=== PATIENT | male | born 1955 | race Caucasian/White ===

== ENCOUNTER 2017-02-28 12:48 | Emergency (ER) | payer MEDICARE ==
--- NOTE | 2017-02-28 13:17 | ER Document Report ---
ED Medical Screen (RME) - General Chief Complaint: Diarrhea Stated Complaint: DIARRHEA/BLOOD SUGAR PROBLEMS Time Seen by Provider: 02/28/17 12:59 Mode of Arrival: Ambulatory Information source: Patient Notes: 62-year-old diabetic male presents with complaints of low blood sugar as well as diarrhea. Patient notes he has had 5 episodes of diarrhea without any vomiting or fevers. Patient notes his blood sugar was 208 units of insulin I have greeted and performed a rapid initial assessment of this patient. A comprehensive ED assessment and evaluation of the patient, analysis of test results and completion of the medical decision making process will be conducted by additional ED providers. PHYSICAL EXAMINATION: GENERAL: Well-appearing, well-nourished and in no acute distress. HEAD: Atraumatic, normocephalic. EYES: Pupils equal round extraocular movements intact, conjunctiva are normal. ENT: Nares patent NECK: Normal range of motion LUNGS: No respiratory distress Musculoskeletal: Normal range of motion NEUROLOGICAL: Normal speech, normal gait. PSYCH: Normal mood, normal affect. SKIN: Warm, Dry, normal turgor, no rashes or lesions noted. TRAVEL OUTSIDE OF THE [place] IN LAST 30 DAYS: No - Related Data Allergies/Adverse Reactions: No Known Allergies Allergy (Verified 02/28/17 12:53) Past Medical History - Past Medical History Cardiac Medical History: Reports: Hx Hypercholesterolemia, Hx Hypertension Denies: Hx Atrial Fibrillation, Hx Congestive Heart Failure, Hx Coronary Artery Disease, Hx Heart Attack, Hx Peripheral Vascular Disease, Hx Pulmonary Embolism, Hx Heart Murmur Pulmonary Medical History: Reports: Hx Asthma - CHILD Denies: Hx Bronchitis, Hx COPD, Hx Pneumonia, Hx Respiratory Failure, Hx Sleep Apnea, Hx Tuberculosis Neurological Medical History: Denies: Hx Cerebrovascular Accident, Hx Seizures Endocrine Medical History: Denies: Hx Graves' Disease, Hx Hyperthyroidism, Hx Hypothyroidism Renal/ Medical History: Denies: Hx Benign Prostatic Hyperplasia, Hx End Stage Renal Disease, Hx Kidney Stones, Hx Peritoneal Dialysis Malignancy Medical History: Denies Hx Leukemia, Denies Hx Lung Cancer GI Medical History: Reports: Hx Gastroesophageal Reflux Disease. Denies: Hx Crohn's Disease, Hx Hepatitis, Hx Hiatal Hernia, Hx Irritable Bowel, Hx Liver Failure, Hx Ulcer Musculoskeltal Medical History: Denies Hx Arthritis, Denies Hx Fibromyalgia, Denies Hx Muscular Dystrophy Psychiatric Medical History: Denies: Hx Bipolar Disorder, Hx Depression, Hx Post Traumatic Stress Disorder , Hx Schizophrenia Traumatic Medical History: Denies: Hx Fractures Infectious Medical History: Denies: Hx Hepatitis, Hx HIV Past Surgical History: Reports: Hx Cholecystectomy. Denies: Hx Appendectomy, Hx Bowel Surgery, Hx Colostomy, Hx Coronary Artery Bypass Graft, Hx Gastric Bypass Surgery, Hx Herniorrhaphy, Hx Open Heart Surgery, Hx Pacemaker, Hx Tonsillectomy - Immunizations Hx Diphtheria, Pertussis, Tetanus Vaccination: Yes Physical Exam - Vital signs Vitals: Temp Pulse Resp BP Pulse Ox 97.8 F 90 18 169/78 H 97 02/28/17 12:52 02/28/17 12:52 02/28/17 12:52 02/28/17 12:52 02/28/17 12:52 Course - Vital Signs Vital signs: Temp Pulse Resp BP Pulse Ox 97.8 F 90 18 169/78 H 97 02/28/17 12:52 02/28/17 12:52 02/28/17 12:52 02/28/17 12:52 02/28/17 12:52
[2017-02-28 14:02] LABS: ABSOLUTE EOSINOPHILS # (AUTO) 0.1 10^3/uL (0.0-0.6); ABSOLUTE LYMPHOCYTES (AUTO) 0.9 10^3/uL (0.5-4.7); ABSOLUTE MONOCYTES (AUTO) 0.7 10^3/uL (0.1-1.4); ABSOLUTE NEUT (AUTO) 7.1 10^3/uL (1.7-8.2); BASOPHILS % (AUTO) 0.5 % (0-2); EOSINOPHILS % (AUTO) 1.2 % (0-6); HEMATOCRIT 40.3 % (37.9-51.0); HEMOGLOBIN 13.2 g/dL (13.5-17.0); HGB HCT DIFFERENCE -0.7; LYMPHOCYTES % (AUTO) 10.7 % (13-45); MEAN CORPUSCULAR HEMOGLOBIN 29.9 pg (27.0-33.4); MEAN CORPUSCULAR HGB CONC 32.9 g/dL (32.0-36.0); MEAN CORPUSCULAR VOLUME 91 fl (80-97); RED BLOOD COUNT 4.44 10^6/uL (4.35-5.55); RED CELL DISTRIBUTION WIDTH 13.9 % (11.5-14.0); SEGMENTED NEUTROPHILS % (AUTO) 79.6 % (42-78); WHITE BLOOD COUNT 8.9 10^3/uL (4.0-10.5)
[2017-02-28 14:07] LABS: APPEARANCE,URINE CLEAR; BILIRUBIN,URINE NEGATIVE (NEGATIVE); GLUCOSE, URINE >=500 mg/dL (NEGATIVE); KETONES,URINE NEGATIVE (NEGATIVE); LEUKOCYTE ESTERASE,URINE NEGATIVE (NEGATIVE); NITRITE,URINE NEGATIVE (NEGATIVE); PROTEIN,URINE 30 mg/dL (NEGATIVE); URINE SPECIFIC GRAVITY 1.023; UROBILINOGEN,URINE NEGATIVE mg/dL (<2.0)
[2017-02-28 14:20] LABS: ALANINE AMINOTRANSFERASE 30 U/L (21-72); ALBUMIN 4.1 g/dL (3.5-5.0); ALKALINE PHOSPHATASE 64 U/L (38-126); ANION GAP 11 (5-19); ASPARTATE AMINO TRANSFERASE 21 U/L (17-59); BILIRUBIN,DIRECT 0.5 mg/dL (0.0-0.4); BILIRUBIN,TOTAL 0.5 mg/dL (0.2-1.3); BLOOD UREA NITROGEN 15 mg/dL (7-20); CALCIUM 10.5 mg/dL (8.4-10.2); CARBON DIOXIDE 26 mmol/L (22-30); CHLORIDE 100 mmol/L (98-107); CREATININE RESULT 0.89 mg/dL (0.52-1.25); GLUCOSE 273 mg/dL (75-110); POTASSIUM 5.1 mmol/L (3.6-5.0); SODIUM 137.1 mmol/L (137-145); TOTAL PROTEIN 6.7 g/dL (6.3-8.2)
[2017-02-28] MEDS ORDERED: NORMAL SALINE 1000 ML 1,000 ML IV ONE (14:24)
[2017-02-28] MEDS ORDERED: INSULIN REG, HUMAN 100 UNIT/ML 3 ML VIAL (PYX) SUBCUT ONE (14:30)
--- NOTE | 2017-02-28 14:32 | ER Document Report ---
ED GI/ - General Chief Complaint: Diarrhea Stated Complaint: DIARRHEA/BLOOD SUGAR PROBLEMS Time Seen by Provider: 02/28/17 12:59 Mode of Arrival: Ambulatory Information source: Patient Notes: Patient is a 62-year-old male who presents to the ER today for elevated blood sugar readings today and 4 episodes of diarrhea that also began this morning. Patient states that he feels weak. TRAVEL OUTSIDE OF THE [place] IN LAST 30 DAYS: No - Related Data Allergies/Adverse Reactions: No Known Allergies Allergy (Verified 02/28/17 12:53) Past Medical History - General Information source: Patient - Social History Smoking Status: Current Every Day Smoker Chew tobacco use (# tins/day): No Frequency of alcohol use: Occasional Drug Abuse: None Family History: None Patient has suicidal ideation: No Patient has homicidal ideation: No - Past Medical History Cardiac Medical History: Reports: Hx Hypercholesterolemia, Hx Hypertension Denies: Hx Atrial Fibrillation, Hx Congestive Heart Failure, Hx Coronary Artery Disease, Hx Heart Attack, Hx Peripheral Vascular Disease, Hx Pulmonary Embolism, Hx Heart Murmur Pulmonary Medical History: Reports: Hx Asthma - CHILD Denies: Hx Bronchitis, Hx COPD, Hx Pneumonia, Hx Respiratory Failure, Hx Sleep Apnea, Hx Tuberculosis Neurological Medical History: Denies: Hx Cerebrovascular Accident, Hx Seizures Endocrine Medical History: Denies: Hx Graves' Disease, Hx Hyperthyroidism, Hx Hypothyroidism Renal/ Medical History: Denies: Hx Benign Prostatic Hyperplasia, Hx End Stage Renal Disease, Hx Kidney Stones, Hx Peritoneal Dialysis Malignancy Medical History: Denies Hx Leukemia, Denies Hx Lung Cancer GI Medical History: Reports: Hx Gastroesophageal Reflux Disease. Denies: Hx Crohn's Disease, Hx Hepatitis, Hx Hiatal Hernia, Hx Irritable Bowel, Hx Liver Failure, Hx Ulcer Musculoskeltal Medical History: Denies Hx Arthritis, Denies Hx Fibromyalgia, Denies Hx Muscular Dystrophy Psychiatric Medical History: Denies: Hx Bipolar Disorder, Hx Depression, Hx Post Traumatic Stress Disorder , Hx Schizophrenia Traumatic Medical History: Denies: Hx Fractures Infectious Medical History: Denies: Hx Hepatitis, Hx HIV Surgical Hx: Negative Past Surgical History: Reports: Hx Cholecystectomy. Denies: Hx Appendectomy, Hx Bowel Surgery, Hx Colostomy, Hx Coronary Artery Bypass Graft, Hx Gastric Bypass Surgery, Hx Herniorrhaphy, Hx Open Heart Surgery, Hx Pacemaker, Hx Tonsillectomy - Immunizations Hx Diphtheria, Pertussis, Tetanus Vaccination: Yes Hx Pneumococcal Vaccination: 06/19/12 Review of Systems - Review of Systems Constitutional: See HPI EENT: No symptoms reported Cardiovascular: No symptoms reported Respiratory: No symptoms reported Gastrointestinal: See HPI Genitourinary: No symptoms reported Male Genitourinary: No symptoms reported Musculoskeletal: No symptoms reported Skin: No symptoms reported Hematologic/Lymphatic: No symptoms reported Neurological/Psychological: No symptoms reported Physical Exam - Vital signs Vitals: Temp Pulse Resp BP Pulse Ox 97.8 F 90 18 169/78 H 97 02/28/17 12:52 02/28/17 12:52 02/28/17 12:52 02/28/17 12:52 02/28/17 12:52 - Notes Notes: PHYSICAL EXAMINATION: GENERAL: mildly ill appearing, but in no acute distress. HEAD: Atraumatic, normocephalic. EYES: Pupils equal round and reactive to light, extraocular movements intact, sclera anicteric, conjunctiva are normal. NECK: Normal range of motion, supple without lymphadenopathy LUNGS: CTAB and equal. No wheezes rales or rhonchi. HEART: Regular rate and rhythm without murmurs ABDOMEN: Soft, mild diffuse tenderness. No guarding, no rebound BACK: no vertebral tenderness, normal ROM GI/: no CVA tenderness EXTREMITIES: Normal range of motion, no pitting edema. No cyanosis. NEUROLOGICAL: Cranial nerves grossly intact. Normal sensory/motor exams. PSYCH: Normal mood, normal affect. SKIN: Warm, Dry, normal turgor, no rashes or lesions noted Course - Re-evaluation Re-evalutation: 02/28/17 18:19 serum glucose was 273 on arrival, insulin was administered and came down to 93. pt has tried multiple time to give us a stool sample but has been unable to provide one and has been here more than 5 hours. with otherwise normal labs, pt symptoms probably viral. will treat conservatively. - Vital Signs Vital signs: Temp Pulse Resp BP Pulse Ox 97.8 F 90 18 169/78 H 97 02/28/17 12:52 02/28/17 12:52 02/28/17 12:52 02/28/17 12:52 02/28/17 12:52 - Laboratory Result Diagrams: 02/28/17 13:30 02/28/17 13:30 Laboratory results interpreted by me: 0502/28/17 02/28/17 13:13 13:30 13:30 Hgb 13.2 L Seg Neutrophils % 79.6 H Lymphocytes % 10.7 L Potassium 5.1 H Glucose 273 H POC Glucose 228 H Calcium 10.5 H Direct Bilirubin 0.5 H Urine Protein Urine Glucose (UA) Urine Blood 02/28/17 02/28/17 13:30 15:35 Hgb Seg Neutrophils % Lymphocytes % Potassium Glucose POC Glucose 206 H Calcium Direct Bilirubin Urine Protein 30 H Urine Glucose (UA) >=500 H Urine Blood SMALL H Discharge - Discharge Clinical Impression: Elevated blood sugar Diarrhea Qualifiers: Diarrhea type: unspecified type Qualified Code(s): R19.7 - Diarrhea, unspecified Abdominal pain Qualifiers: Abdominal location: generalized Qualified Code(s): R10.84 - Generalized abdominal pain Condition: Stable Disposition: HOME, SELF-CARE Additional Instructions: drink plenty of gatorade and water. Return immediately for any new or worsening symptoms. Follow up with primary care provider, call tomorrow to make followup appointment. Referrals: DANA MUNGUIA MD [Primary Care Provider] - Follow up as needed
[2017-02-28 19:14] VITALS: BP 185/79
== END 2017-02-28 19:14 | disposition home or self-care (01) ==
LOC: ER 12:48
DX: R73.9 Hyperglycemia, unspecified (principal); R19.7 Diarrhea, unspecified; R10.84 Generalized abdominal pain
CPT/HCPCS: 99284; 96360; 36415; 82962; 85025; 80053; 81001; 74022; A9270; J7030; J1815

== ENCOUNTER 2017-11-13 20:49 | Observation (INO) | payer MEDICARE ==
[2017-11-13] MEDS ORDERED: ASPIRIN 81 MG TABLET, CHEWABLE PO ONE (20:53)
[2017-11-13 21:18] LABS: ABSOLUTE BASOPHILS # (AUTO) 0.1 10^3/uL (0.0-0.2); ABSOLUTE EOSINOPHILS # (AUTO) 0.5 10^3/uL (0.0-0.6); ABSOLUTE LYMPHOCYTES (AUTO) 1.8 10^3/uL (0.5-4.7); ABSOLUTE MONOCYTES (AUTO) 0.8 10^3/uL (0.1-1.4); ABSOLUTE NEUT (AUTO) 4.4 10^3/uL (1.7-8.2); EOSINOPHILS % (AUTO) 6.2 % (0-6); HEMATOCRIT 39.8 % (37.9-51.0); HEMOGLOBIN 13.4 g/dL (13.5-17.0); MEAN CORPUSCULAR HEMOGLOBIN 29.5 pg (27.0-33.4); MEAN CORPUSCULAR HGB CONC 33.7 g/dL (32.0-36.0); MEAN CORPUSCULAR VOLUME 87 fl (80-97); MONOCYTES % (AUTO) 10.4 % (3-13); PLATELET COUNT 182 10^3/uL (150-450); RED BLOOD COUNT 4.55 10^6/uL (4.35-5.55); RED CELL DISTRIBUTION WIDTH 13.8 % (11.5-14.0); SEGMENTED NEUTROPHILS % (AUTO) 58.4 % (42-78); TOTAL CELLS COUNTED % (AUTO) 100 %; WHITE BLOOD COUNT 7.5 10^3/uL (4.0-10.5)
[2017-11-13 21:26] LABS: INTERNATIONAL RATION (INR) 0.87; PROTHROMBIN TIME 12.4 SEC (11.4-15.4)
[2017-11-13 21:31] LABS: ALANINE AMINOTRANSFERASE 29 U/L (21-72); ALBUMIN 3.8 g/dL (3.5-5.0); ALKALINE PHOSPHATASE 67 U/L (38-126); ANION GAP 7 (5-19); ASPARTATE AMINO TRANSFERASE 18 U/L (17-59); BILIRUBIN,DIRECT 0.2 mg/dL (0.0-0.4); BILIRUBIN,TOTAL 0.3 mg/dL (0.2-1.3); BLOOD UREA NITROGEN 16 mg/dL (7-20); CALCIUM 10.6 mg/dL (8.4-10.2); CARBON DIOXIDE 29 mmol/L (22-30); CHLORIDE 99 mmol/L (98-107); GLUCOSE 248 mg/dL (75-110); POTASSIUM 4.6 mmol/L (3.6-5.0); SODIUM 134.5 mmol/L (137-145); TOTAL PROTEIN 5.8 g/dL (6.3-8.2)
--- NOTE | 2017-11-13 21:41 | RADIOLOGY REPORT (SQ) ---
EXAM DESCRIPTION: CHEST SINGLE VIEW COMPLETED DATE/TIME: 11/13/2017 9:29 pm REASON FOR STUDY: chest pain COMPARISON: 03/31/2016 EXAM PARAMETERS: NUMBER OF VIEWS: One view. TECHNIQUE: Single frontal radiographic view of the chest acquired. RADIATION DOSE: NA LIMITATIONS: None. FINDINGS: LUNGS AND PLEURA: No acute opacities, masses or pneumothorax. No pleural effusion. MEDIASTINUM AND HILAR STRUCTURES: Stable. HEART AND VASCULAR STRUCTURES: Heart normal in size. Normal vasculature. BONES: No acute findings. HARDWARE: None in the chest. OTHER: No other significant finding. IMPRESSION: NO ACUTE RADIOGRAPHIC FINDING IN THE CHEST. TECHNICAL DOCUMENTATION: JOB ID: [id number] [place]-72 2010 [employer]- All Rights Reserved
--- NOTE | 2017-11-13 23:24 | ER Document Report ---
ED General - General Chief Complaint: Chest Pain Stated Complaint: CHEST PAIN Time Seen by Provider: 11/13/17 21:00 Notes: Patient is a 62-year-old male with a past medical history of insulin-dependent diabetes, hypertension, hyperlipidemia, who presents with acute onset of left- sided chest pain radiating to the left upper extremity that started at approximately 6 PM this evening. Patient states that the pain was a crushing, pressure-like sensation over the left side of his chest. He states the pain did improve after receiving nitroglycerin by EMS. Nothing seemed to worsen the pain. He notes that there was no associated shortness of breath, nausea, vomiting or diaphoresis. He denies any history of similar pain in the past so he notes he has had intermittent chest discomforts over the last several weeks. However he states none have been to this degree of density. He spoke to his primary care doctor regarding the intermittent chest pains that he had had over the last several weeks and was instructed to come to the emergency department if he had any recurrence of similar pains. TRAVEL OUTSIDE OF THE [place] IN LAST 30 DAYS: No - Related Data Allergies/Adverse Reactions: No Known Allergies Allergy (Verified 02/28/17 12:53) Past Medical History - General Information source: Patient - Social History Smoking Status: Never Smoker Chew tobacco use (# tins/day): Yes Frequency of alcohol use: None Drug Abuse: None Lives with: Spouse/Significant other Family History: Reviewed & Not Pertinent Patient has suicidal ideation: No Patient has homicidal ideation: No - Past Medical History Cardiac Medical History: Reports: Hx Hypercholesterolemia, Hx Hypertension Denies: Hx Atrial Fibrillation, Hx Congestive Heart Failure, Hx Coronary Artery Disease, Hx Heart Attack, Hx Peripheral Vascular Disease, Hx Pulmonary Embolism, Hx Heart Murmur Pulmonary Medical History: Reports: Hx Asthma - CHILD Denies: Hx Bronchitis, Hx COPD, Hx Pneumonia, Hx Respiratory Failure, Hx Sleep Apnea, Hx Tuberculosis Neurological Medical History: Denies: Hx Cerebrovascular Accident, Hx Seizures Endocrine Medical History: Denies: Hx Graves' Disease, Hx Hyperthyroidism, Hx Hypothyroidism Renal/ Medical History: Denies: Hx Benign Prostatic Hyperplasia, Hx End Stage Renal Disease, Hx Kidney Stones, Hx Peritoneal Dialysis Malignancy Medical History: Denies Hx Leukemia, Denies Hx Lung Cancer GI Medical History: Reports: Hx Gastroesophageal Reflux Disease. Denies: Hx Crohn's Disease, Hx Hepatitis, Hx Hiatal Hernia, Hx Irritable Bowel, Hx Liver Failure, Hx Pancreatitis, Hx Ulcer Musculoskeltal Medical History: Denies Hx Arthritis, Denies Hx Fibromyalgia, Denies Hx Muscular Dystrophy Psychiatric Medical History: Denies: Hx Bipolar Disorder, Hx Depression, Hx Post Traumatic Stress Disorder , Hx Schizophrenia Traumatic Medical History: Denies: Hx Fractures Infectious Medical History: Denies: Hx Hepatitis, Hx HIV Past Surgical History: Reports: Hx Bowel Surgery - partial colon resection, Hx Cholecystectomy. Denies: Hx Appendectomy, Hx Colostomy, Hx Coronary Artery Bypass Graft, Hx Gastric Bypass Surgery, Hx Herniorrhaphy, Hx Open Heart Surgery , Hx Pacemaker, Hx Tonsillectomy - Immunizations Hx Diphtheria, Pertussis, Tetanus Vaccination: Yes Hx Pneumococcal Vaccination: 06/19/12 Review of Systems - Review of Systems Notes: Constitutional: Negative for fever. HENT: Negative for sore throat. Eyes: Negative for visual changes. Cardiovascular: Positive for chest pain. Respiratory: Negative for shortness of breath. Gastrointestinal: Negative for abdominal pain, vomiting or diarrhea. Genitourinary: Negative for dysuria. Musculoskeletal: Negative for back pain. Skin: Negative for rash. Neurological: Negative for headaches, weakness or numbness. 10 point ROS negative except as marked above and in HPI. Physical Exam - Vital signs Vitals: Temp Resp BP Pulse Ox 97.4 F 18 149/77 H 99 11/13/17 20:56 11/13/17 20:56 11/13/17 20:56 11/13/17 20:56 Interpretation: Normal Notes: PHYSICAL EXAMINATION: GENERAL: Well-appearing, well-nourished and in no acute distress. HEAD: Atraumatic, normocephalic. EYES: Pupils equal round and reactive to light, extraocular movements intact, sclera anicteric, conjunctiva are normal. ENT: nares patent, oropharynx clear without exudates. Moist mucous membranes. NECK: Normal range of motion, supple without lymphadenopathy LUNGS: Breath sounds clear to auscultation bilaterally and equal. No wheezes rales or rhonchi. HEART: Regular rate and rhythm without murmurs ABDOMEN: Soft, nontender, normoactive bowel sounds. No guarding, no rebound. No masses appreciated. EXTREMITIES: Normal range of motion, no pitting or edema. No cyanosis. NEUROLOGICAL: No focal neurological deficits. Moves all extremities spontaneously and on command. PSYCH: Normal mood, normal affect. SKIN: Warm, Dry, normal turgor, no rashes or lesions noted. Course - Re-evaluation Re-evalutation: 11/13/17 23:23 Presentation of chest pain in an otherwise well appearing patient. Low to moderate clinical suspicion for ACS given clinical history, exam, EKG without ST elevations or depressions, and negative initial troponin. PE also seems unlikely given clinical history, absence of tachycardia or dyspnea. Patient is PERC criteria negative. CXR without evidence of pneumothorax or pneumonia. No widened mediastinum. Aortic dissection also seems unlikely given history, symmetric pulses, CXR, and vitals. We will repeat a delta troponin and given patient's somewhat concerning history we will discuss with hospitalist for inpatient stress testing as patient has not had any kind of provocative test in over 10 years. HEART Score: History:1 EC Age:1 Risk Factors:2 Troponin:0 Total: 4 11/14/17 01:10 Repeat troponin remains normal the patient continues to require Nitropaste remained chest pain-free. I discussed with Dr. Ayala who is accepted the patient for hospitalization and treadmill stress test. - Vital Signs Vital signs: Temp Pulse Resp BP Pulse Ox 97.4 F 14 118/65 98 11/13/17 20:56 11/14/17 01:01 11/14/17 01:01 11/14/17 01:01 - Laboratory Result Diagrams: 11/13/17 21:05 11/13/17 21:05 Laboratory results interpreted by me: 11/13/17 11/13/17 21:05 21:05 Hgb 13.4 L Eosinophils % 6.2 H Sodium 134.5 L Glucose 248 H Calcium 10.6 H Total Protein 5.8 L - Diagnostic Test Radiology reviewed: Image reviewed, Reports reviewed Radiology results interpreted by me: 11/14/17 01:10 Chest x-ray: No acute infiltrate or pneumothorax - EKG Interpretation by Me Additional EKG results interpreted by me: 11/14/17 01:11 Normal sinus rhythm. Rate 86. No ST elevations or depressions. QTC is 440. 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
[2017-11-14] MEDS ORDERED: GLUCAGON,HUMAN RECOMB 1 MG INJ IM PRN (03:46)
[2017-11-14] MEDS ORDERED: NITROGLYCERIN 0.4 MG/TAB 25 TAB/BOTTLE SL PRN (03:46)
[2017-11-14] MEDS ORDERED: DEXTROSE 50%-WATER 25 GM/50 ML DISP.SYRIN IV PRN ×2 (03:46)
[2017-11-14] MEDS ORDERED: PROMETHAZINE HCL INJ 25 MG/1 ML VIAL IV PRN (03:46)
[2017-11-14] MEDS ORDERED: DEXTROSE 40% GEL 15 GM TUBE PO PRN ×2 (03:46)
[2017-11-14] MEDS ORDERED: ENOXAPARIN SODIUM INJ 100 MG/1 ML DISP.SYRIN SUBCUT ONE (04:00)
[2017-11-14 07:40] LABS: CHOLESTEROL 149.68 mg/dL (0-200); TRIGLYCERIDES 72 mg/dL (<150)
[2017-11-14 07:51] LABS: DIRECT LDL 74 mg/dL (<100)
[2017-11-14] MEDS: INSULIN REG, HUMAN 100 UNIT/ML 3 ML VIAL (PYX) SUBCUT PRN ×2 (08:53→21:54)
[2017-11-14] MEDS: DOCUSATE SODIUM 100 MG CAPSULE PO SCH (08:56)
[2017-11-14] MEDS: ASPIRIN 81 MG TABLET, ENT COATED PO SCH (08:56)
[2017-11-14] MEDS ORDERED: FAMOTIDINE 20 MG TABLET PO SCH (10:00)
[2017-11-14] MEDS ORDERED: OXYCODONE-ACETAMINOPHEN 5-325 MG TABLET PO PRN (10:12)
[2017-11-14] MEDS ORDERED: (PENDING PHARMACY ID) (Lisinopril [Lisinopril] 40 MG) PO SCH (10:15)
[2017-11-14] MEDS ORDERED: (PENDING PHARMACY ID) (Metformin Hcl [Metformin Hcl] 1,000 MG) PO SCH (10:15)
--- NOTE | 2017-11-14 11:07 | PDOC CONSULTATION ---
Consultation Consult Date: 11/14/17 Attending physician:: JONATHAN ANDREWS Consult reason:: Chest pain History of Present Illness Admission Date/PCP: 11/14/17 01:21 JAKUB MUNGUIA NP Patient complains of: Chest pain History of Present Illness: Patient is a 62-year-old male with a past medical history of insulin-dependent diabetes, hypertension, hyperlipidemia, who presents with acute onset of left- sided chest pain radiating to the left upper extremity that started at approximately 6 PM this evening. Patient states that the pain was a crushing, pressure-like sensation over the left side of his chest. He states the pain did improve after receiving nitroglycerin by EMS. Nothing seemed to worsen the pain. He notes that there was no associated shortness of breath, nausea, vomiting or diaphoresis. He denies any history of similar pain in the past so he notes he has had intermittent chest discomforts over the last several weeks. However he states none have been to this degree of density. He spoke to his primary care doctor regarding the intermittent chest pains that he had had over the last several weeks and was instructed to come to the emergency department if he had any recurrence of similar pains. Subsequently his cardiac enzymes have come back negative. EKGs did not show any acute changes. However because of significant cardiac risk factors feel an ischemia evaluation is indicated. Patient is being scheduled for a nuclear stress test. Past Medical History Cardiac Medical History: Reports: Hyperlipidema, Hypertension Denies: Atrial Fibrillation, Congestive Heart Failure, Coronary Artery Disease, Myocardial Infarction, Peripheral Vascular Disease, Pulmonary Embolism , Heart Murmur Pulmonary Medical History: Reports: Asthma - CHILD Denies: Bronchitis, Chronic Obstructive Pulmonary Disease (COPD), Pneumonia, Respiratory Failure, Sleep Apnea, Tuberculosis Neurological Medical History: Denies: Seizures Endocrine Medical History: Denies: Hyperthyroidism, Hypothyroidism Renal/ Medical History: Denies: End Stage Renal Disease Malignancy Medical History: Denies: Breast Cancer, Cervical Cancer, Leukemia, Lung Cancer, Ovarian Cancer GI Medical History: Reports: Gastroesophageal Reflux Disease Denies: Crohn's Disease, Hepatitis, Hiatal Hernia Musculoskeltal Medical History: Denies: Arthritis, Fibromyalgia Psychiatric Medical History: Denies: Bipolar Disorder, Depression, Post Traumatic Stress Disorder Hematology: Denies: Anemia, Hemophilia, Sickle Cell Disease Infectious Medical History: Denies: HIV Past Surgical History Past Surgical History: Reports: Cholecystectomy Denies: Appendectomy, Colostomy, Coronary Artery Bypass Graft, Gastric Bypass Surgery, Herniorrhaphy, Pacemaker, Tonsillectomy Social History Information Source: Patient Lives with: Spouse/Significant other Smoking Status: Never Smoker Hx Recreational Drug Use: No Drugs: None Hx Prescription Drug Abuse: No - Advance Directive Resuscitation Status: Full Code Surrogate healthcare decision maker:: Patient's live-in girlfriend is a surrogate decision-maker with the name of Giovanna Family History Family History: Hypertension Parental Family History Reviewed: Yes Children Family History Reviewed: Yes Sibling(s) Family History Reviewed.: Yes Medication/Allergy Home Medications: Gabapentin [Gabapentin] 600 mg PO TID 11/14/17 Hydrochlorothiazide 12.5 mg PO DAILY 11/14/17 Insulin Glargine,Hum.rec.anlog [Lantus Insulin 100 Unit/1 ml 10 ml] 50 units SUBCUT QAM 11/14/17 Lisinopril [Lisinopril] 40 mg PO DAILY 11/14/17 Meloxicam [Meloxicam] 15 mg PO DAILY 11/14/17 Metformin HCl [Metformin HCl] 1,000 mg PO BID 11/14/17 Methocarbamol 500 mg PO TID 11/14/17 Oxycodone HCl/Acetaminophen [Oxycodone-Acetaminophen 5-325] 1 tab PO Q6 PRN MDD 4 11/14/17 Pantoprazole Sodium 40 mg PO DAILY 11/14/17 Sitagliptin Phosphate [Januvia] 100 mg PO DAILY 11/14/17 Tramadol HCl [Tramadol HCl] 50 mg PO BID 11/14/17 Allergies/Adverse Reactions: No Known Allergies Allergy (Verified 02/28/17 12:53) Review of Systems Review of Systems: Please see history of present illness and past medical history as wall. Constitutional: No fever or chills reported. Head : No recent chronic headaches, recent head injury. Eyes: No recent eye pain, diplopia, redness, discharge, acute visual changes. Ears: No recent chronic ear pain, acute hearing loss, ear discharge. Oral cavity: No recent ulcerations, bleeding, oral cavity discomfort. Neck: No recent acute neck pain reported. Hematologic: No recent easy bruising or bleeding or hematologic malignancy reported. Lymphatic: No recent lymphatic malignancy, chronic lymphadenopathy reported yet Cardiovascular system review: See history of present illness. Respiratory system review: No recent chronic cough, hemoptysis, blood clots in the lungs reported. Mild Shortness of breath on exertion Gastrointestinal system review: Negative for any recent acute or chronic abdominal pain, hematemesis, melena, recent change in bowel habits. Genitourinary system review: No recent acute or chronic hematuria, flank pain, UTI etc. reported. Skin system review: Negative for any recent abnormal bruising, no rash, no pruritus reported. Neurologic: No prior history of strokes, mini strokes, seizure disorder. Psychologic: No history of major psychosis or major depression reported. Musculoskeletal: Minor aches and pains reported. No acute joint swelling reported. Endocrine: No recent polyuria, polydipsia, recent heat or cold intolerance. Physical Exam Vital Signs: Temp Pulse Resp BP Pulse Ox 97.9 F 77 16 147/71 H 97 11/14/17 07:59 11/14/17 07:59 11/14/17 07:59 11/14/17 07:59 11/14/17 07:59 Intake & Output 11/13/17 11/14/17 11/15/17 06:59 06:59 06:59 Intake Total 5 Balance 5 Weight 85.1 kg Exam: GENERAL: well-nourished and in no acute distress. Alert and oriented x3 HEAD: Atraumatic, normocephalic. EYES: Pupils equal round and reactive to light, extraocular movements intact, sclera anicteric, conjunctiva are normal. ENT: TMs normal, nares patent, oropharynx clear without exudates. Moist mucous membranes. No oral ulcerations or bleeding gums noted NECK: supple without lymphadenopathy. Trachea is central. No cervical or axillary lymphadenopathy noted. Carotids are 2+, JVD WNL LUNGS: Respiration seems nonlabored, no significant accessory muscle action noted. Breath sounds clear to auscultation bilaterally and equal noted. No wheezes rales or rhonchi noted. No significant dullness noted on percussion. CHEST: Palpation of the chest wall shows no significant chest wall tenderness. No other significant abnormalities noted. 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 ABDOMEN: Soft, no significant tenderness appreciated, normoactive bowel sounds. No guarding, no rebound. No rigidity noted . No masses appreciated. EXTREMITIES: Pedal pulses are 1-2+, no calf tenderness noted. No clubbing or cyanosis. Negative pedal edema noted NEUROLOGICAL: Focused neurological exam showed no significant neurologic deficit. Normal speech, no focal weakness appreciated. PSYCH: Normal mood, normal affect. Judgment and insight within normal limits. SKIN: No significant ecchymosis, rash, ulcerations or signs of pruritus noted. MUSCULOSKELETAL EXAM: No significant joint swelling noted. Results Laboratory Results: 11/14/17 06:31 Triglycerides 72 Cholesterol 149.68 LDL Cholesterol Direct 74 VLDL Cholesterol 14.0 HDL Cholesterol 70 11/14/17 06:31 Troponin I < 0.012 EKG Comments: Showed sinus rhythm, no acute ST-T wave changes noted Impressions: Chest X-Ray 11/13/17 20:53 IMPRESSION: NO ACUTE RADIOGRAPHIC FINDING IN THE CHEST. 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 Cardiac enzymes so far has been negative. Electrocardiogram did not show any definitive ST segment changes. Multiple differential diagnoses exist in this patient. In descending order of probability this includes underlying coronary artery disease, gastroesophageal reflux, musculoskeletal pain, referred pain from elsewhere, anxiety panic disorder etc.Patient has significant cardiac risk factors, which indicates that there is a intermediate probability of chest discomfort coming from underlying CAD. Feel that it would need to be evaluated further. Discussed evaluation to assess this. In this regard risk benefits of nuclear stress test and other alternative processes were discussed in detail. The patient prefers to undergo nuclear stress test. The small risk of radiation , myocardial infarction, , cardiac arrhythmias, respiratory distress etc. were discussed. Patient understood the risks and gave informed consent. Nuclear stress test was therefore scheduled. For risk evaluation, patient is also being scheduled for a 2-D echocardiogram. Patient questions were answered. Diabetes: Recommend good control of blood sugar. However should avoid any hypoglycemia or hyperglycemia. Patient being expertly managed by primary care M.D/hospitalist. Hypertension: Reasonably well controlled. Blood pressure goal in this patient is 135/85 or less. This was discussed with the patient. Currently blood pressure under reasonable control. Better medication for this patient are MELO inhibitor/ARB/beta anny etc. discussed side effects of uncontrolled hypertension and also severe hypotension. Hyperlipidemia: LDL goal is less than 70. Recommend statin therapy at least intermediate or high dose, of high potency status. Periodic lipid panel and liver panel is indicated. Patient to report any significant muscle discomfort or other side effects. - Time Time Spent: 30 to 50 Minutes - CODE STATUS was discussed, patient remains full code. Surrogate decision-maker unchanged. Multiple medical problems were addressed. More than 50% of the time spent coordinating care, discussing management plans with involved caregivers. Management plans discussed with involved personnels. Medical decision making was of moderate to high complexity , patient's has multiple comorbidities. Medications reviewed and adjusted accordingly: Yes
[2017-11-14] MEDS ORDERED: LANSOPRAZOLE 30 MG TAB.RAP.DR PO ONE (11:30)
[2017-11-14] MEDS ORDERED: LISINOPRIL 10 MG TABLET PO ONE (11:30)
[2017-11-14] MEDS ORDERED: SITAGLIPTIN PHOSPHATE 50 MG TABLET PO ONE (11:45)
[2017-11-14] MEDS ORDERED: METFORMIN HCL 500 MG TABLET PO ONE (12:00)
[2017-11-14] MEDS: GABAPENTIN 300 MG CAPSULE PO SCH ×2 (15:18→21:32)
[2017-11-14] MEDS: METHOCARBAMOL 500 MG TABLET PO SCH ×2 (15:19→21:32)
[2017-11-14] MEDS ORDERED: MAG HYDROX/AL HYDROX/SIMETH SUSP 30 ML UDCUP PO ONE (16:00)
[2017-11-14] MEDS ORDERED: METOCLOPRAMIDE HCL ORAL SOLN 10 MG/10 ML UDCUP PO ONE (16:00)
[2017-11-14] MEDS ORDERED: LIDOCAINE 2% VISCOUS SOLN 20 ML UDCUP PO ONE (16:00)
[2017-11-14] MEDS ORDERED: AMINOPHYLLINE INJ/PF 250 MG/10 ML SDV IV ONE (16:01)
[2017-11-14] MEDS ORDERED: REGADENOSON INJ 0.4 MG/5 ML DISP.SYRIN IV ONE (16:01)
--- NOTE | 2017-11-14 17:39 | HISTORY AND PHYSICAL E ---
History and Physical NAME: UMER PATRICK : 1955 AGE: 62Y ADMITTED: 11/14/2017 ROOM: 318 PRIMARY CARE PROVIDER: Dena Salazar APRN CHIEF COMPLAINT: Chest pain. HISTORY OF PRESENT ILLNESS: The patient is a 62-year-old male with a past medical history of diabetes mellitus type 2 and hypertension. The patient presented to the emergency department with a chief complaint of left-sided chest pain which radiated into the left upper extremity. The patient's pain started approximately 3 hours prior to presentation. The patient stated that the pain was crushing, pressure like sensation under the left side of his chest. The patient stated that his pain did improve after receiving nitroglycerin by EMS. Nothing seemed to worsen the pain or make the pain better. The patient had no other associated symptoms of nausea, dyspnea, diaphoresis, or vomiting. The patient denies any history of similar pain. The patient denies any frequent heartburn. He also states that this has been intermittent over the past week but duller in nature. However, the patient was evaluated by his primary care provider regarding this and was instructed to come to the emergency department for evaluation. Upon presentation to the emergency department the patient was found to be normotensive with an unremarkable set of cardiac enzymes. EKG revealed a sinus rhythm and the patient was referred to the hospitalist for admission and management. PAST MEDICAL HISTORY: 1. Hyperlipidemia. 2. Hypertension. 3. Childhood asthma. 4. Diabetes mellitus type 2. 5. Peripheral neuropathy. PAST SURGICAL HISTORY: 1. Partial colon resection. 2. Cholecystectomy. 3. Rotator cuff surgery. 4. Right wrist surgery. 5. Neck surgery. ALLERGIES: No known drug allergies. HOME MEDICATIONS: 1. Gabapentin 600 mg p.o. t.i.d. 2. Hydrochlorothiazide 12.5 mg p.o. daily. 3. Lisinopril 40 mg p.o. daily. 4. Meloxicam 15 mg p.o. daily. 5. Metformin 1000 mg p.o. b.i.d. 6. Methocarbamol 500 mg p.o. t.i.d. 7. Protonix 40 mg p.o. daily. 8. Januvia 100 mg p.o. daily. 9. Tramadol 50 mg p.o. b.i.d. SOCIAL HISTORY: The patient currently resides at home. The patient appoints as his surrogate decision maker, Kera Fernández, who may be reached at [phone]. The patient denies any history of tobacco use. No history of alcohol or illicit drug use. FAMILY MEDICAL HISTORY: Positive for hypertension in multiple family members. No other family history to report. REVIEW OF SYSTEMS: CONSTITUTIONAL: The patient denies any fevers, chills, dizziness, weakness, or loss of consciousness. INTEGUMENTARY: The patient denies any diaphoresis, rashes, bruising, itching. HEENT: Denies any vision change, hearing loss, nasal drainage, sore throat. No headaches. CARDIOVASCULAR: Denies any shortness of breath, edema, heart palpitations. Admits to chest pain. RESPIRATORY: Denies any cough, sputum production, or hemoptysis. GASTROINTESTINAL: Denies any nausea, vomiting, diarrhea, abdominal pain, bloating, hematemesis, constipation, melena, or hematochezia. GENITOURINARY: Denies any hematuria, polyuria, or dysuria. MUSCULOSKELETAL: Denies any acute on chronic joint pains. NEUROLOGIC: Denies any seizures, tremors, or loss of consciousness. HEMATOLOGIC: Denies any radha bleeding, easy bruising. ENDOCRINE: Denies any recent weight changes or abnormal glucoses. PSYCHIATRIC: Denies suicidal or homicidal ideation. The rest of the review of the other organ systems is negative. PHYSICAL EXAMINATION: GENERAL: On examination the patient is a well-developed, well-nourished 62-year-old male who is awake, alert, and oriented to person, place, time, and situation. He is verbal, conversational, ambulatory, does not appear to be in any acute distress. VITAL SIGNS: Temperature 98.5, pulse 83, respirations 16, blood pressure 131/83, oxygen saturation is 96% on room air. SKIN: Warm and dry; no rash, he is not diaphoretic. HEENT: Pupils equal, round reactive to light and accommodation. Conjunctivae are pink. There is no evidence of JVP. CARDIOVASCULAR: Heart is regular. There is no murmur or rub. CHEST: Clear, symmetrical, unlabored. ABDOMEN: Soft, nontender, nondistended. Bowel sounds are present. No palpable organomegaly. BACK: No CVA tenderness or sacral edema. EXTREMITIES: No clubbing, cyanosis, edema. PSYCHIATRIC: Appropriate affect, pleasant mood. DIAGNOSTIC STUDIES: Lab values are as follows: Hematology obtained on 11/13/2017; WBC 7.5, hemoglobin 13.4, hematocrit is 39.9, platelet count is 182,000. Chemistry obtained on 11/14/2017; sodium is 134, potassium 4.6, chloride is 99, carbon dioxide is 29, BUN 16, creatinine 0.87, glucose 248, calcium is 10.6, bilirubin is 0.3, AST 18, ALT 29, alk-phos 67, total protein 5.8, albumin 3.8. Triglycerides are 72, cholesterol 149, LDL 74, VLDL is 14, HDL is 70. IMPRESSION AND PLAN: 1. Chest pain. Will observe the patient and continue with telemetry unit. We will obtain serial cardiac enzymes. The patient's lipid panel was unremarkable, continue statin, aspirin therapy. The patient will be seen and evaluated by Dr. Quezada and follow. 2. Hypertension. Will continue the patient's home medications. 3. Diabetes mellitus type 2. Will continue the patient's home meds as well as sliding scale coverage. CODE STATUS: The patient is a full code. DISPOSITION: Depending on the patient's symptomatology and diagnostic findings will reevaluate in the a.m. TIME SPENT: On this admission, including assessment, plan, physical examination, patient education, review of records, and speciality collaboration is 45 minutes. DICTATING PHYSICIAN: MARTHA LOPEZ NP [id number] PHY#: [id number] ID: [id number] JOB#: [id number] ACCT: [id number] cc:MARTHA LOPEZ NP >
[2017-11-14] MEDS: METFORMIN HCL 500 MG TABLET PO SCH (18:04)
[2017-11-14] MEDS: ENOXAPARIN SODIUM INJ 100 MG/1 ML DISP.SYRIN SUBCUT SCH (18:05)
[2017-11-14] MEDS ORDERED: SIMVASTATIN 40 MG TABLET PO SCH (22:00)
[2017-11-15] MEDS: ENOXAPARIN SODIUM INJ 100 MG/1 ML DISP.SYRIN SUBCUT SCH (05:31)
[2017-11-15] MEDS ORDERED: LISINOPRIL 10 MG TABLET PO SCH (10:00)
[2017-11-15] MEDS ORDERED: SITAGLIPTIN PHOSPHATE 50 MG TABLET PO SCH (10:00)
[2017-11-15] MEDS ORDERED: LANSOPRAZOLE 30 MG TAB.RAP.DR PO SCH (10:00)
[2017-11-15] MEDS: GABAPENTIN 300 MG CAPSULE PO SCH (10:31)
[2017-11-15] MEDS: METHOCARBAMOL 500 MG TABLET PO SCH (10:31)
[2017-11-15] MEDS: ASPIRIN 81 MG TABLET, ENT COATED PO SCH (10:32)
[2017-11-15] MEDS: METFORMIN HCL 500 MG TABLET PO SCH (10:32)
[2017-11-15] MEDS: DOCUSATE SODIUM 100 MG CAPSULE PO SCH (10:32)
--- NOTE | 2017-11-15 11:04 | DRAGON STRESS TEST REPORT ---
INTRAVENOUS LEXISCAN CARDIOLITE STRESS TEST USING SINGLE PHOTON EMMISION COMPUTERIZED TOMOGRAPHIC. DATE OF PROCEDURE: November 15, 2017, INDICATION : Chest pain CARDIAC RISK FACTORS: Diabetes, hypertension, dyslipidemia, family history of CAD RESTING EKG: Sinus rhythm without any baseline ST-T wave changes STRESS EKG: No significant changes noted with LexiScan bolus REASON FOR TERMINATION: Protocol. PROCEDURE REPORT: Baseline heart rate 83 beats per minute with blood pressure of 151/76. Patient had no significant complaints. Heart rate at 2 minutes post bolus 88 with a blood pressure of 155/63. 3 minutes post bolus heart rate 94 with blood pressure of 159/64. No significant EKG changes were noted. Patient had no significant complaints during the procedure or postprocedure. Patient injected with Aminophyllin 75 mg at 3 minutes or later after Lexiscan bolus. CONCLUSIONS: Normal EKG and hemodynamic response to IV LexiScan. NUCLEAR DATA: At rest the patient was given 11.71 millicuries of technetium 99 sestamibi injected intravenously. As per protocol rest gated SPECT images were obtained. On day of stress test, the patient was given intravenous LexiScan at a dose of 0.4 mg in 5 mL intravenously, followed by flush with normal saline. Subsequently the stress dose of 37.7 millicuries of technetium 99 sestamibi was injected intravenously. As per protocol stress gated images were obtained. NUCLEAR INTERPRETATION: Both raw and processed data were used for interpretation. Visual, qualitative, computer-generated quantitative data was used. There was good myocardial uptake of technetium compound. Motion artifact and soft tissue attenuations were noted. Increased visceral uptake was noted. No definitive areas of transient perfusion defect noted, No definitive areas of fixed perfusion defect or scars noted. EKG gated imaging showed LV EF at 53 %, rest and stress gated EF similar visually. T. I D. ratio was 0.89. Lung heart ratio noted to be within normal limits 0.22. No significant extracardiac and abnormal radiotracer activities were noted. RV free wall uptake was noted to be WNL. IMPRESSION: Also refer to comments under nuclear interpretation. Also test results needs to be interpreted in the context of pretest probability. 1. No definitive areas of transient perfusion defect noted. 2. There is no definitive scintigraphic evidence of myocardial infarction/scar. 3. EKG gated imaging shows left ventricular ejection fraction of approx. 53 %. 4. Clinical correlation requested as occasionally single vessel disease or balanced ischemia could be missed. In approximately 10% of the cases Lexiscan may not cause adequate vasodilatory stress. RECOMMENDATIONS: Aggressive risk factor modification and medical management. Further evaluation may be needed if continued symptoms or other high risk indicators are noted on clinical evaluation. Close cardiology follow-up is also recommended. Clinical correlation with echocardiogram derived ejection fraction. Inability to exercise by itself can lead to increased cardiovascular event risks. Consider cardiology consultation and or follow-up if clinically indicated. 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 WILLIAM
--- NOTE | 2017-11-15 11:54 | EKG REPORT ---
SEVERITY:- ABNORMAL ECG - SINUS OR ECTOPIC ATRIAL RHYTHM FIRST DEGREE AV BLOCK : Confirmed by: Cathi Bauer MD 15-Nov-2017 11:53:17
--- NOTE | 2017-11-15 11:54 | EKG REPORT ---
SEVERITY:- NORMAL ECG - SINUS RHYTHM : Confirmed by: Cathi Bauer MD 15-Nov-2017 11:53:20
--- NOTE | 2017-11-15 11:54 | EKG REPORT ---
SEVERITY:- ABNORMAL ECG - SINUS OR ECTOPIC ATRIAL RHYTHM FIRST DEGREE AV BLOCK : Confirmed by: Cathi Bauer MD 15-Nov-2017 11:53:12
--- NOTE | 2017-11-15 11:56 | PDOC PROGRESS REPORT ---
Subjective Progress Note for:: 11/15/17 Subjective:: Patient seems to be doing better. Pt is denying any chest arm or neck discomfort. Patient denying any PND, orthopnea. Patient denied any sustained palpitations, dizziness, syncope, near syncope. Patient denying any fever chills. Patient denying any other significant discomfort. Patient is maintaining sinus rhythm. Review of systems: Rest review of systems negative. Medications: Medications have been reviewed. Reason For Visit: CHEST PAIN Physical Exam Vital Signs: Temp Pulse Resp BP Pulse Ox 98.2 F 76 17 131/56 H 97 11/15/17 03:07 11/15/17 03:07 11/15/17 03:07 11/15/17 03:07 11/15/17 03:07 Intake & Output 11/14/17 11/15/17 11/16/17 06:59 06:59 06:59 Intake Total 5 1748 Balance 5 1748 Weight 85.1 kg 84.7 kg Exam: GENERAL: well-nourished and in no acute distress. Alert and oriented x3 HEAD: Atraumatic, normocephalic. EYES: Pupils equal round and reactive to light, extraocular movements intact, sclera anicteric, conjunctiva are normal. ENT: TMs normal, nares patent, oropharynx clear without exudates. Moist mucous membranes. No oral ulcerations or bleeding gums noted NECK: supple without lymphadenopathy. Trachea is central. No cervical or axillary lymphadenopathy noted. Carotids are 2+, JVD WNL LUNGS: Respiration seems nonlabored, no significant accessory muscle action noted. Breath sounds clear to auscultation bilaterally and equal noted. No wheezes rales or rhonchi noted. No significant dullness noted on percussion. CHEST: Palpation of the chest wall shows no significant chest wall tenderness. No other significant abnormalities noted. 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 ABDOMEN: Soft, no significant tenderness appreciated, normoactive bowel sounds. No guarding, no rebound. No rigidity noted . No masses appreciated. EXTREMITIES: Pedal pulses are 1-2+, no calf tenderness noted. No clubbing or cyanosis. Negative pedal edema noted NEUROLOGICAL: Focused neurological exam showed no significant neurologic deficit. Normal speech, no focal weakness appreciated. PSYCH: Normal mood, normal affect. Judgment and insight within normal limits. SKIN: No significant ecchymosis, rash, ulcerations or signs of pruritus noted. MUSCULOSKELETAL EXAM: No significant joint swelling noted. Results Laboratory Results: 11/14/17 11/14/17 11/14/17 06:31 11:48 18:15 Troponin I < 0.012 < 0.012 < 0.012 EKG Comments: Sinus rhythm, no acute ST-T wave changes noted Impressions: Chest X-Ray 11/13/17 20:53 IMPRESSION: NO ACUTE RADIOGRAPHIC FINDING IN THE CHEST. 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 This was evaluated with a nuclear stress test. Nuclear stress test was negative for any significant areas of ischemia or any significant areas of scar. The nuclear stress test is felt to be relatively low risk. Patient informed that occasionally single- vessel disease and balanced ischemia could be missed. Patient advised aggressive risk factor modification and medical therapy. Patient informed that further evaluation may become necessary if symptoms worsens or there is a development of new symptoms indicative of angina or angina equivalent symptom. Diabetes: Recommend good control of blood sugar. However should avoid any hypoglycemia and hyperglycemia. Patient being expertly managed by primary care M.D/hospitalist Hypertension: Reasonably well controlled. Blood pressure goal in this patient is 135/85 or less. This was discussed with the patient. Currently blood pressure under reasonable control. Better medication for this patient are MELO inhibitor/ARB/beta anny etc. discussed side effects of uncontrolled hypertension and also severe hypotension. Hyperlipidemia: LDL goal is less than 70. Recommend statin therapy at least intermediate or high dose, of high potency status. Periodic lipid panel and liver panel is indicated. Patient to report any significant muscle discomfort or other side effects.. - Time Time with patient: Greater than 35 minutes - Patient was seen multiple times. Total time exceeds 40 minutes. In the morning nuclear stress test procedure, risks benefits, alternatives were discussed. Patient seen during the stress test. Patient also seen after stress test when results were discussed with the patient in detail. Patient's questions were answered. Nuclear stress test results were discussed with the patient. Patient was informed that no definitive evidence of pharmacologic stress-induced ischemia noted. No definite fixed defects were noted. Patient informed that occasionally significant single vessel disease or balanced ischemia could be missed. However based on the current study results, would recommend aggressive risk factor modification and medical therapy. It may also be worthwhile to consider evaluation or empiric management of other causes of chest pain. Should no other cause be found and if persistent in having chest pain, then cardiac catheterization should be considered. Right now, recommendations are for aggressive risk factor modification and medical management. More than 50% of the time spent coordinating care, discussing management plans with involved caregivers. Management plans discussed with involved personnels. Medical decision making was of moderate to high complexity, patient's has multiple comorbidities.
[2017-11-15 12:29] VITALS: BP 150/91
--- NOTE | 2017-11-15 15:39 | DISCHARGE SUMMARY E ---
Discharge Summary NAME: UMER PATRICK : 1955 AGE: 62Y ADMITTED: 11/14/2017 DISCHARGED: 11/15/2017 CODE STATUS: FULL CODE. CONSULTING FINANCIAL SERVICES CONSULTANT: Dr. Quezada. PRIMARY CARE PROVIDER: Dena Salazar NP. DIET: Heart healthy as tolerated. ACTIVITY: As tolerated. CONDITION: Good. DISCHARGE DIAGNOSES: Include: 1. GASTROESOPHAGEAL REFLUX DISEASE AND SUBSEQUENT ESOPHAGITIS. 2. CHEST PAIN SECONDARY TO NUMBER ONE WHICH HAS RESOLVED. 3. DIABETES MELLITUS TYPE 2. 4. PERIPHERAL NEUROPATHY. 5. CHILDHOOD ASTHMA. 6. HYPERLIPIDEMIA. 7. HYPERTENSION. DISCHARGE MEDICATIONS: Include: 1. Protonix 40 mg p.o. daily. 2. Gabapentin 600 mg p.o. 3 times daily. 3. Hydrochlorothiazide 12.5 mg p.o. daily. 4. Lisinopril 40 mg p.o. daily. 5. Metformin 1000 mg p.o. b.i.d. 6. Methocarbamol 500 mg p.o. 3 times daily. 7. Januvia 100 mg p.o. daily. 8. Tramadol 50 mg p.o. daily. PHYSICAL EXAMINATION: GENERAL: On examination, the patient is a well-developed, well-nourished 62-year-old male who is awake, alert and oriented to person, place, time and situation. He is verbal and conversational and does not appear to be in any acute distress. VITAL SIGNS FOLLOWS: Temperature is 98.2. Pulse 90. Respirations 16. Blood pressure is 150/91. Oxygen saturation 95% on room air. SKIN: Warm and dry. No rash. Not diaphoretic. HEENT: Pupils equal, round and reactive to light and accommodation. Conjunctivae are pink. NECK: There is no evidence of JVP. CARDIOVASCULAR SYSTEM: Heart is regular. There is no murmur or rub. CHEST: Clear, symmetrical, unlabored. ABDOMEN: Soft, nontender, nondistended. BACK: No CVA tenderness or sacral edema. EXTREMITIES: No clubbing, cyanosis, edema. PSYCHIATRIC: Appropriate affect. Pleasant mood. HISTORY OF PRESENT ILLNESS: The patient is a 62-year-old male with a past medical history of gastroesophageal reflux disease. The patient presented to the emergency department with a chief complaint of left-sided chest pain which radiated into his left upper extremity. The patient stated that his pain started approximately 3 hours prior to presentation. The patient stated that the pain was a burning, pressure-like sensation on the left side of his chest. The patient stated his pain improved after receiving nitroglycerin by EMS. The patient could not articulate any worsening or alleviating factor. The patient had no other associated symptoms of nausea, dyspnea, diaphoresis, vomiting. The patient denies any previous history of similar pain. The patient states that he has had the pain intermittently over the past week, but it had been duller in nature. The patient was evaluated by his primary care provider and instructed to come to the emergency department for evaluation. The patient does give a history of PPI use on a daily basis due to gastroesophageal reflux disease. The patient states that he had been out of his Protonix for over a week and therefore was without his Protonix. The patient stated he did get a prescription for it, and it has since been renewed. The patient gives a history of significant reflux symptoms without Protonix. HOSPITAL COURSE: Patient was observed in continuous telemetry unit. Serial cardiac enzymes were obtained, all of which were non-suggestive. The patient had no EKG changes and no events on the conveyor monitor. The patient did have replication of symptoms and was given GI cocktail with complete and total resolution of the patient's symptoms. The patient has had no further symptoms in greater than 24 hours. The patient was seen and evaluated by Dr. Quezada of Cardiology and underwent Cardiolite stress test, and findings were not consistent with reversible ischemia. The patient is quite eager for discharge. I discussed abruptly stopping PPI and rebound reflux associated with this. Therefore believe if the patient does resume steady dose of PPI that it will improve these symptoms. Regardless, the patient has been referred to GI. The patient does request Dr. Moreno with Gastroenterology. A referral for this will be accommodated. DISCHARGE PLANNIN. The patient will follow up with his primary care provider as needed. 2. The patient will be referred to Dr. Moreno with Gastroenterology at his request for workup of noncardiac chest pain and gastroesophageal reflux disease. TIME SPENT: Time spent on this discharge including assessment, plan, physical examination, patient education, review of records, and specialty collaboration is 25 minutes. DICTATING PHYSICIAN: MARTHA LOPEZ NP [id number] [facility]#: [id number] ID: [id number] JOB#: [id number] ACCT: [id number] cc:TUNDE CRONIN M.D. >
--- NOTE | 2017-11-18 17:54 | EKG REPORT ---
SEVERITY:- ABNORMAL ECG - SINUS OR ECTOPIC ATRIAL RHYTHM FIRST DEGREE AV BLOCK : Confirmed by: Deshawn Summers MD 18-Nov-2017 17:54:11
--- NOTE | 2017-11-18 17:56 | EKG REPORT ---
SEVERITY:- ABNORMAL ECG - SINUS OR ECTOPIC ATRIAL RHYTHM FIRST DEGREE AV BLOCK : Confirmed by: Deshawn Summers MD 18-Nov-2017 17:55:52
--- NOTE | 2017-11-19 09:07 | EKG REPORT ---
SEVERITY:- NORMAL ECG - SINUS RHYTHM : Confirmed on behalf of: Deshawn Summers MD 19-Nov-2017 09:07:01
== END 2017-11-15 14:39 | disposition home or self-care (01) ==
LOC: ER 20:49 → EH 11-14 01:21 → 3W 11-14 03:31
PROVIDERS: ADMIT Internal Medicine; ATTEND Internal Medicine
DX: K21.0 Gastro-esophageal reflux disease with esophagitis (principal); R07.89 Other chest pain; E11.42 Type 2 diabetes mellitus with diabetic polyneuropathy; Z87.09 Personal history of other diseases of the respiratory system; E78.5 Hyperlipidemia, unspecified; I10 Essential (primary) hypertension; Z79.4 Long term (current) use of insulin; Z90.49 Acquired absence of other specified parts of digestive tract; Z82.49 Family history of ischemic heart disease and other diseases of the circulatory system; Z79.899 Other long term (current) drug therapy; Z72.0 Tobacco use
CPT/HCPCS: 99285; 36415 ×2; 82962 ×2; 85025; 85610; 80053; 84484 ×2; 80061; 93017; 71045; 78452; 93005 ×6; 93010 ×6; G0378 ×2; A9500; J2785; A9270 ×18; J3490 ×3; J1650 ×2; J0280; Q9969; J1815

== ENCOUNTER 2017-11-28 17:44 | Emergency (ER) | payer MEDICARE ==
[2017-11-28 17:54] VITALS: BP 142/80
[2017-11-28] MEDS ORDERED: LIDOCAINE 1% INJ-PF (10 MG/ML) 30 ML SDV INJ ONE (19:31)
--- NOTE | 2017-11-28 19:34 | ER Document Report ---
HPI - HPI Onset: This afternoon Onset/Duration: Sudden Quality of pain: Achy Pain Level: 2 Context: Patient states that he was using a chainsaw and the saw got stuck in the wood. Patient states that he jerked the saw out of the piece of wood and accidentally cut his left forearm. Patient states that the chainsaw was not running at the time of his laceration. Patient states his tetanus immunization is currently up -to-date. Associated Symptoms: Other - Left forearm laceration Exacerbated by: Movement Relieved by: Denies Similar symptoms previously: No Recently seen / treated by doctor: No - ROS ROS below otherwise negative: Yes Systems Reviewed and Negative: Yes All other systems reviewed and negative - CONSTITUTIONAL Constitutional: DENIES: Fever - REPRODUCTIVE Reproductive: DENIES: : - MUSCULOSKELETAL Musculoskeletal: REPORTS: Extremity pain - DERM Skin Problems: Laceration Past Medical History - General Information source: Patient - Social History Smoking Status: Never Smoker Frequency of alcohol use: None Drug Abuse: None Occupation: [employer] Family History: Hypertension - Past Medical History Cardiac Medical History: Reports: Hx Hypercholesterolemia, Hx Hypertension Denies: Hx Atrial Fibrillation, Hx Congestive Heart Failure, Hx Coronary Artery Disease, Hx Heart Attack, Hx Peripheral Vascular Disease, Hx Pulmonary Embolism, Hx Heart Murmur Pulmonary Medical History: Reports: Hx Asthma - CHILD Denies: Hx Bronchitis, Hx COPD, Hx Pneumonia, Hx Respiratory Failure, Hx Sleep Apnea, Hx Tuberculosis Neurological Medical History: Denies: Hx Cerebrovascular Accident, Hx Seizures Endocrine Medical History: Denies: Hx Graves' Disease, Hx Hyperthyroidism, Hx Hypothyroidism Renal/ Medical History: Denies: Hx Benign Prostatic Hyperplasia, Hx End Stage Renal Disease, Hx Kidney Stones, Hx Peritoneal Dialysis Malignancy Medical History: Denies Hx Leukemia, Denies Hx Lung Cancer GI Medical History: Reports: Hx Gastroesophageal Reflux Disease. Denies: Hx Crohn's Disease, Hx Hepatitis, Hx Hiatal Hernia, Hx Irritable Bowel, Hx Liver Failure, Hx Pancreatitis, Hx Ulcer Musculoskeltal Medical History: Denies Hx Arthritis, Denies Hx Fibromyalgia, Denies Hx Muscular Dystrophy Psychiatric Medical History: Denies: Hx Bipolar Disorder, Hx Depression, Hx Post Traumatic Stress Disorder , Hx Schizophrenia Traumatic Medical History: Denies: Hx Fractures Infectious Medical History: Denies: Hx Hepatitis, Hx HIV Past Surgical History: Reports: Hx Bowel Surgery - partial colon resection, Hx Cholecystectomy - Immunizations Immunizations up to date: Yes Hx Diphtheria, Pertussis, Tetanus Vaccination: Yes Hx Pneumococcal Vaccination: 06/19/12 Vertical Provider Document - CONSTITUTIONAL Agree With Documented VS: Yes Exam Limitations: No Limitations General Appearance: WD/WN, No Apparent Distress - INFECTION CONTROL TRAVEL OUTSIDE OF THE [place] IN LAST 30 DAYS: No - HEENT HEENT: Atraumatic, Normocephalic - NECK Neck: Normal Inspection - RESPIRATORY Respiratory: No Respiratory Distress O2 Sat by Pulse Oximetry: 97 - CARDIOVASCULAR Pulses: Normal: Radial - MUSCULOSKELETAL/EXTREMETIES Musculoskeletal/Extremeties: MAEW, FROM - NEURO Level of Consciousness: Awake, Alert, Appropriate Motor/Sensory: No Motor Deficit - DERM Integumentary: Warm, Dry, Laceration - 1 cm laceration to left forearm Course - Vital Signs Vital signs: Temp Pulse Resp BP Pulse Ox 98.7 F 96 18 142/80 H 97 11/28/17 17:52 11/28/17 17:52 11/28/17 17:52 11/28/17 17:52 11/28/17 17:52 Procedures - Laceration/Wound Repair Left Arm Wound length (cm): 1 Wound's Depth, Shape: Linear Anesthetic type: 1% Lidocaine Wound explored: Clean, No foreign body removed Wound Repaired With: Sutures Suture Size/Type: 5:0, Nylon Number of Sutures: 2 Post-procedure wound care: Sterile dressing applied Post-procedure NV exam normal: Yes Complications: No Discharge - Discharge Clinical Impression: Hx of essential hypertension Arm laceration Qualifiers: Encounter type: initial encounter Laterality: left Qualified Code(s): S41.112A - Laceration without foreign body of left upper arm, initial encounter Condition: Stable Disposition: HOME, SELF-CARE Instructions: Laceration Care ([facility]) Additional Instructions: Return immediately for any new or worsening symptoms Followup with your primary care provider, call tomorrow to make a followup appointment Suture removal in 10 days Forms: Elevated Blood Pressure Referrals: ANABELLA MERAZ MD [Primary Care Provider] - Follow up as needed
== END 2017-11-28 21:04 | disposition home or self-care (01) ==
LOC: ER 17:44
PROC: 0HQCXZZ Repair Left Upper Arm Skin, External Approach (ICD-10-PCS; principal; 2017-11-28)
DX: S41.112A Laceration without foreign body of left upper arm, initial encounter (principal); W26.8XXA Contact with other sharp object(s), not elsewhere classified, initial encounter; E78.00 Pure hypercholesterolemia, unspecified; I10 Essential (primary) hypertension; Z90.49 Acquired absence of other specified parts of digestive tract
CPT/HCPCS: 99282; 12001; J3490

== ENCOUNTER 2017-12-09 18:21 | Emergency (ER) | payer MEDICARE ==
[2017-12-09 18:39] VITALS: BP 145/71
--- NOTE | 2017-12-09 18:43 | ER Document Report ---
"HPI - HPI Patient complains to provider of: suture removal Onset: Other - 11 days Onset/Duration: Better Quality of pain: No pain Pain Level: Denies Context: pt presents for suture removal to left forearm. Patient with 2 intact sutures. 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 | [employer] Family History: Hypertension - Past Medical History Cardiac Medical History: Reports: Hx Hypercholesterolemia, Hx Hypertension Denies: Hx Atrial Fibrillation, Hx Congestive Heart Failure, Hx Coronary Artery Disease, Hx Heart Attack, Hx Peripheral Vascular Disease, Hx Pulmonary Embolism, Hx Heart Murmur Pulmonary Medical History: Reports: Hx Asthma - CHILD Denies: Hx Bronchitis, Hx COPD, Hx Pneumonia, Hx Respiratory Failure, Hx Sleep Apnea, Hx Tuberculosis Neurological Medical History: Denies: Hx Cerebrovascular Accident, Hx Seizures Endocrine Medical History: Denies: Hx Graves' Disease, Hx Hyperthyroidism, Hx Hypothyroidism Renal/ Medical History: Denies: Hx Benign Prostatic Hyperplasia, Hx End Stage Renal Disease, Hx Kidney Stones, Hx Peritoneal Dialysis Malignancy Medical History: Denies Hx Leukemia, Denies Hx Lung Cancer GI Medical History: Reports: Hx Gastroesophageal Reflux Disease. Denies: Hx Crohn's Disease, Hx Hepatitis, Hx Hiatal Hernia, Hx Irritable Bowel, Hx Liver Failure, Hx Pancreatitis, Hx Ulcer Musculoskeltal Medical History: Denies Hx Arthritis, Denies Hx Fibromyalgia, Denies Hx Muscular Dystrophy Psychiatric Medical History: Denies: Hx Bipolar Disorder, Hx Depression, Hx Post Traumatic Stress Disorder , Hx Schizophrenia Traumatic Medical History: Denies: Hx Fractures Infectious Medical History: Denies: Hx Hepatitis, Hx HIV Past Surgical History: Reports: Hx Bowel Surgery - partial colon resection, Hx Cholecystectomy. Denies: Hx Appendectomy, Hx Colostomy, Hx Coronary Artery Bypass Graft, Hx Gastric Bypass Surgery, Hx Herniorrhaphy, Hx Open Heart Surgery , Hx Pacemaker, Hx Tonsillectomy - Immunizations Immunizations up to date: Yes Hx Diphtheria, Pertussis, Tetanus Vaccination: Yes Hx Pneumococcal Vaccination: 06/19/12 Vertical Provider Document - CONSTITUTIONAL Agree With Documented VS: Yes Exam Limitations: No Limitations General Appearance: WD/WN - INFECTION CONTROL TRAVEL OUTSIDE OF THE [place] IN LAST 30 DAYS: No - HEENT HEENT: Atraumatic, Normocephalic - NECK Neck: Normal Inspection - RESPIRATORY Respiratory: No Respiratory Distress O2 Sat by Pulse Oximetry: 100 - BACK Back: Normal Inspection - MUSCULOSKELETAL/EXTREMETIES Musculoskeletal/Extremeties: MAHILDA, FROM - NEURO Level of Consciousness: Awake, Alert, Appropriate Motor/Sensory: No Motor Deficit - DERM Integumentary: Warm, Laceration - sutured lack to left forearm with 2 intact sutures, wound edges approximated, no surrounding erythema Course - Vital Signs Vital signs: Temp Pulse Resp BP Pulse Ox 98.6 F 94 145/71 H 100 12/09/17 18:38 12/09/17 18:38 12/09/17 18:38 12/09/17 18:38 Discharge - Discharge Clinical Impression: Visit for suture removal Condition: Stable Disposition: HOME, SELF-CARE Instructions: Suture Removal Additional Instructions: Return immediately for any new or worsening symptoms Followup with your primary care provider as needed"
== END 2017-12-09 18:55 | disposition home or self-care (01) ==
LOC: ER 18:21
DX: S51.812D Laceration without foreign body of left forearm, subsequent encounter (principal); X58.XXXD Exposure to other specified factors, subsequent encounter; I10 Essential (primary) hypertension

== ENCOUNTER → 2017-12-29 | Outpatient (CLI) | payer MEDICARE ==
--- NOTE | 2017-12-29 09:06 | ST Modified Barium Swallow ---
Recommendation - Recommendations Recommendations: Recommend regular diet and thin liquids, discussed mechanical soft diet with patient for comfort reasons. Recommend medications be taken crushed or in liquid form as able. Recommend gastrointestinal consult due to possible esophageal deficits. Medical Diagnoses - Medical Diagnoses Medical Diagnosis Description & ICD-10 Code(s): dysphagia R13.10 Other Medical Diagnoses/Co-Morbidities: per patient report and physician paperwork: s/p neck surgery for pinched nerve in 2012, GERD, diabetes, history of colon cancer ST Modified Barium Swallow - General Date: 12/29/17 Referring Physician: Dr. Clarence Vila Reason for Referral: difficulty swallowing - History History obtained from: Patient -: Medical - Patient acted as his own historian. He reports that he had neck surgery in 2011 for cervical spine, and since then has noticed difficulty swallowing. Specifically reports pills are difficult to swallow, as well as larger or heavier foods, such as meats. No reported difficulty with liquids. States that he finds himself coughing because he feels things "stuck". He has had no recent pneumonia and no history of CVA. Medications: Patient unable to give full list of medications. Did state that he takes something for reflux, unable to give name. Allergies: none reported - Functional Status Prior Functional Status: INDEPENDENT: feeding - independent - Subjective Patient/caregiver goal(s): better swallow Cognitive-Linguistic Function: WNL Speech Intelligibility: WNL Current Nutritional Means: PO Current PO diet: Regular Current symptoms: Coughing, c/o Globus sensation Pain: Patient reports, 0/5 - Objective Assessment: Upright, Left Lateral - Food Trials Used Food trials used: Thin liquids, Pureed, Regular The patient: Was Able to Self Feed - Oral-Motor Skills Dentition: Dentures-Upper, Dentures-Lower Laryngeal Function: Volitional Cough - WNL, Volitional Swallow - WNL - Assessment Oral prep: Normal Labial closure: Adequate Leakage: None Mastication: Adequate Lingual Movement: Normal Oral stage: Normal for this Procedure - Pharyngeal Stage Initiation of Pharyngeal Stage Reflex: Normal Decreased laryngeal elevation: No Reduced Velopharyngeal Closure: no Reduced pressure generation: Yes Pre-swallow pooling in valleculae: Mild Pre-Swallow pooling in pyriforms: None Reduced Thyro-Hyoid approximation: No Reduced epiglottic excursion: No Multiple Swallows with: Ineffective Clearance Post-swallow residulas vallecular: Moderate - with puree and solid trials Post-Swallow residuals in pyriforms: Moderate - with souleymane cracker trial Pharyngeal Stage Comments: Patient was noted to have anatomical variance in epiglottis. Posterior edge appears to curve upwards significantly in a hook type shape, and is seen to catch portion of the bolus during the swallow and contribute to significant residue in the valleculae. - Esophageal Stage Esophageal Stage: With souleymane cracker trial, bolus seen to enter esophagus, and remain in upper portion for several seconds. Portion of bolus was seen to move lower into esophagus with second swallow, then move upwards again. - Fall Risk Assessment Medications/Conditions that increase fall risks include: Antidepressants, sedatives, anti-arrhythmic, diuretic, benzodiazipenes, neuroleptics. BP regulation problems, cardiac problems, balance or gait deficits, neurological problems. Is patient considered at risk for falls: no Fall Risk Actions Taken: No action needed - Behavioral Observations During evaluation process patient: was pleasant, was cooperative, able to answer questions - Treatment / Educational Needs: Treatment/Education Needs: Treatment consisted of patient education on the role of the Speech Pathologist. Patient's plan of care and golas were communicated as well as scheduling and attendance policies. Recommendations for initial home program were shared. Patient demonstrated understanding and verbalized agreement. Initial home program recommendations: Recommend alternating solids and liquids due to residue, and taking medications crushed or in liquid form. - Impression/Summary Laryngeal Penetration: Flash, during swallow Consistency: Thin Tracheal Aspiration: no Compesatory strategies: alternating solids and liquids seen to reduce residue in valleculae. Patient presents with: Pharyngeal stage dysph. - mild-due to structural variance , Esophageal stage dysph. - suspected Risk of Aspiration: Minimal Evaluation and Findings: Patient presents with functional movement for swallowing of all textures. Deficits seen pharyngeally due to structural variance in epiglottis, as shape of epiglottis is seen to "catch" solids which then remain in valleculae. Signs of possible esophageal deficits with souleymane cracker trial only. Would benefit from GI consult. - Recommendations Solid diet recommendations: Regular Liquid Diet Modification: Thin Pt/Family education and followup with MD: Yes Dysphagia therapy with HEEL BUILDER: no Recommended techniques: Fully Upright During Meal, Med Crushed in Applesauce, Small Bites and Sips, Alternate Bites/Sips Supervision: Independent Information, Precautions and Recommendations: Patient (Written), Patient (Verbal ) - Time Total Time: 30 - Plan of Care Patient to follow-up with referring physician: Yes Strategies to optimize patient understanding include:: ongoing assessment of educational needs, implementation of educational strategies, and re-education. - - -: Thank you for the opportunity to work with this patient and his/her family. Should you have any questions about this patient's plan or progress, I can be reached at [phone]. Charge G Code? - - -: Yes ST F.L. Impairment Category - Rationale Based On Rationale Based On: Func. Asses. Tool Results - Swallowing Current G8996: CI 1-19% Impaired Goal G8997: CI 1-19% Impaired Discharge G8998: CI 1-19% Impaired
--- NOTE | 2017-12-29 14:05 | RADIOLOGY REPORT (SQ) ---
EXAM DESCRIPTION: VIVI SWALLOW COMPLETED DATE/TIME: 12/29/2017 8:36 am REASON FOR STUDY: R13.10 DYSPHAGIA, UNSPECIFIED R13.10 DYSPHAGIA, UNSPECIFIED COMPARISON: None. TECHNIQUE: Videofluoroscopic swallowing examination was performed in conjunction with speech patholo gy. Videofluoroscopic imaging was obtained and reviewed and these are the findings: RADIATION DOSE: 1 minutes 47 seconds of fluoroscopy was used. 19 images saved to PACS. LIMITATIONS: None FINDINGS: The patient was brought into the fluoro room and placed upright on a modified barium swall ow chair. The patient was then given multiple consistencies mixed with barium to swallow under live fluoroscopic video guidance. According to the Speech Pathologist there was trace laryngeal penetrati on with thin liquids. No aspiration seen. Post swallow residual contrast seen within the vallecular and piriform sinuses. IMPRESSION: TRACE LARYNGEAL PENETRATION DESCRIBED. NO ASPIRATION SEEN.PLEASE SEE SPEECH PATHOLOG IST REPORT FOR OTHER FINDINGS AND RECOMMENDATIONS. COMMENT: Quality ID [id number]: Final reports for procedures using fluoroscopy that document radiation exp osure indices, or exposure time and number of fluorographic images (if radiation exposure indices are not available) TECHNICAL DOCUMENTATION: JOB ID: [id number] [employer]- All Rights Reserved Reading location - IP/workstation name: [email or web address]
== END ==
LOC: RAD 10:28
PROVIDERS: ATTEND Internal Medicine Gastroenterology
DX: R13.10 Dysphagia, unspecified (principal)
CPT/HCPCS: 74230; 92611; G8996; G8997; G8998

== ENCOUNTER 2018-12-24 15:52 | Observation (INO) | payer OTHER, MEDICARE ==
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
[2018-12-24] MEDS ORDERED: ASPIRIN 81 MG TABLET, CHEWABLE PO ONE (16:11)
[2018-12-24 16:33] LABS: ABSOLUTE BASOPHILS # (AUTO) 0.1 10^3/uL (0.0-0.2); ABSOLUTE EOSINOPHILS # (AUTO) 0.3 10^3/uL (0.0-0.6); ABSOLUTE MONOCYTES (AUTO) 0.7 10^3/uL (0.1-1.4); ABSOLUTE NEUT (AUTO) 6.7 10^3/uL (1.7-8.2); BASOPHILS % (AUTO) 0.7 % (0-2); EOSINOPHILS % (AUTO) 3.1 % (0-6); HEMOGLOBIN 11.4 g/dL (13.5-17.0); LYMPHOCYTES % (AUTO) 11.1 % (13-45); MEAN CORPUSCULAR HEMOGLOBIN 29.6 pg (27.0-33.4); MEAN CORPUSCULAR HGB CONC 33.5 g/dL (32.0-36.0); MEAN CORPUSCULAR VOLUME 89 fl (80-97); MONOCYTES % (AUTO) 8.2 % (3-13); PLATELET COUNT 180 10^3/uL (150-450); RED BLOOD COUNT 3.85 10^6/uL (4.35-5.55); RED CELL DISTRIBUTION WIDTH 14.1 % (11.5-14.0); SEGMENTED NEUTROPHILS % (AUTO) 76.9 % (42-78); TOTAL CELLS COUNTED % (AUTO) 100 %; WHITE BLOOD COUNT 8.7 10^3/uL (4.0-10.5)
--- NOTE | 2018-12-24 16:38 | RADIOLOGY REPORT (SQ) ---
EXAM DESCRIPTION: CHEST 2 VIEWS COMPLETED DATE/TIME: 12/24/2018 4:30 pm REASON FOR STUDY: cp, dizziness COMPARISON: 03/31/2016 chest films EXAM PARAMETERS: NUMBER OF VIEWS: two views TECHNIQUE: Digital Frontal and Lateral radiographic views of the chest acquired. RADIATION DOSE: NA LIMITATIONS: none FINDINGS: LUNGS AND PLEURA: No opacities, masses or pneumothorax. No pleural effusion. MEDIASTINUM AND HILAR STRUCTURES: No masses or contour abnormalities. HEART AND VASCULAR STRUCTURES: Heart normal size. No evidence for failure. BONES: Old fixation plate left clavicle. Clips right upper quadrant post cholecystectomy HARDWARE: None in the chest. OTHER: No other significant finding. IMPRESSION: NO ACUTE RADIOGRAPHIC FINDING IN THE CHEST. TECHNICAL DOCUMENTATION: JOB ID: [id number] [employer]- All Rights Reserved Reading location - IP/workstation name: [email or web address]
[2018-12-24] MEDS ORDERED: ACETAMINOPHEN 325 MG TABLET PO ONE (16:45)
[2018-12-24 16:54] LABS: ALANINE AMINOTRANSFERASE 22 U/L (21-72); ALBUMIN 3.9 g/dL (3.5-5.0); ALKALINE PHOSPHATASE 63 U/L (38-126); ANION GAP 11 (5-19); ASPARTATE AMINO TRANSFERASE 20 U/L (17-59); BILIRUBIN,DIRECT 0.2 mg/dL (0.0-0.4); BILIRUBIN,TOTAL 0.2 mg/dL (0.2-1.3); BLOOD UREA NITROGEN 22 mg/dL (7-20); CALCIUM 10.2 mg/dL (8.4-10.2); CARBON DIOXIDE 25 mmol/L (22-30); CHLORIDE 97 mmol/L (98-107); CREATINE KINASE 53 U/L (55-170); GLUCOSE 336 mg/dL (75-110); POTASSIUM 5.4 mmol/L (3.6-5.0); SODIUM 132.9 mmol/L (137-145); TOTAL PROTEIN 6.1 g/dL (6.3-8.2)
[2018-12-24 17:04] LABS: CREATINE KINASE MB 1.02 ng/mL (<4.55)
[2018-12-24 17:13] LABS: TROPONIN I < 0.012 ng/mL
[2018-12-24] MEDS ORDERED: ALBUTEROL SULFATE 0.083% NEB 2.5 MG/3 ML AMPUL NEB ONE (17:34)
[2018-12-24] MEDS ORDERED: NORMAL SALINE 1000 ML 1,000 ML IV ONE (17:36)
[2018-12-24] MEDS ORDERED: ACETAMINOPHEN 325 MG TABLET PO PRN (17:55)
[2018-12-24] MEDS ORDERED: DEXTROSE 40% GEL 15 GM TUBE PO PRN ×2 (18:01)
[2018-12-24] MEDS ORDERED: DEXTROSE 50%-WATER 25 GM/50 ML DISP.SYRIN IV PRN ×2 (18:01)
[2018-12-24] MEDS ORDERED: GLUCAGON,HUMAN RECOMB 1 MG INJ IM PRN (18:01)
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
[2018-12-24] MEDS ORDERED: GABAPENTIN 300 MG CAPSULE PO PRN (19:36)
--- NOTE | 2018-12-24 20:51 | EKG REPORT ---
SEVERITY:- ABNORMAL ECG - SINUS RHYTHM FIRST DEGREE AV BLOCK : Confirmed by: Cathi Bauer MD 24-Dec-2018 20:50:45
[2018-12-24] MEDS: INSULIN LISPRO 100 UNIT/ML 3 ML VIAL SUBCUT SCH (21:54)
[2018-12-24] MEDS: TRAMADOL HCL 50 MG TABLET PO SCH (21:55)
[2018-12-24] MEDS: HEPARIN SOD (PORCINE) 5,000 UNIT/ML 1 ML SYRINGE SUBCUT SCH (21:55)
[2018-12-24] MEDS: ATORVASTATIN CALCIUM 80 MG TABLET PO SCH (21:55)
[2018-12-25] MEDS: LANSOPRAZOLE 30 MG TAB.RAP.DR PO SCH (05:23)
[2018-12-25] MEDS: HEPARIN SOD (PORCINE) 5,000 UNIT/ML 1 ML SYRINGE SUBCUT SCH ×3 (06:16→22:43)
[2018-12-25] MEDS ORDERED: MORPHINE SULFATE 10 MG/ML INJ ONE (06:40)
[2018-12-25] MEDS ORDERED: MORPHINE SULFATE 10 MG/ML INJ IV PRN ×2 (06:42)
[2018-12-25] MEDS: INSULIN LISPRO 100 UNIT/ML 3 ML VIAL SUBCUT SCH ×4 (10:26→22:23)
[2018-12-25] MEDS: TRAMADOL HCL 50 MG TABLET PO SCH ×2 (10:40→22:41)
[2018-12-25] MEDS: INSULIN GLARGINE,HUM.REC.ANLOG 1,000 UNIT/10 ML UNIT SUBCUT SCH (10:40)
[2018-12-25] MEDS: ASPIRIN 81 MG TABLET, CHEWABLE PO SCH (10:41)
--- NOTE | 2018-12-25 12:34 | EKG REPORT ---
SEVERITY:- NORMAL ECG - SINUS RHYTHM : Confirmed by: Cathi Bauer MD 25-Dec-2018 12:34:05
[2018-12-25] MEDS ORDERED: MAG HYDROX/AL HYDROX/SIMETH SUSP 30 ML UDCUP PO ONE (14:30)
[2018-12-25] MEDS ORDERED: METOCLOPRAMIDE HCL ORAL SOLN 10 MG/10 ML UDCUP PO ONE (14:30)
[2018-12-25] MEDS ORDERED: LIDOCAINE 2% VISCOUS SOLN 20 ML UDCUP PO ONE (14:30)
[2018-12-25 16:00] LABS: ANION GAP 10 (5-19); BLOOD UREA NITROGEN 17 mg/dL (7-20); CARBON DIOXIDE 29 mmol/L (22-30); CHLORIDE 97 mmol/L (98-107); GLUCOSE 202 mg/dL (75-110); POTASSIUM 4.8 mmol/L (3.6-5.0)
[2018-12-25] MEDS ORDERED: CYCLOBENZAPRINE HCL 10 MG TABLET PO ONE (16:10)
[2018-12-25 16:12] LABS: NT PRO BNP 148 pg/mL (5-900)
--- NOTE | 2018-12-25 16:18 | PDOC PROGRESS REPORT ---
Subjective Progress Note for:: 12/25/18 Subjective:: The patient was seen earlier today on rounds. The patient states that he still is having some interim chest pressure which he rates around a 3. The patient is unable to elaborate on the alleviating factors other than morphine. The patient denies any nausea, vomiting, diarrhea, shortness of breath, dizziness, chest pain, heart palpitations, fevers, or chills. The patient has remained afebrile. Blood pressures have been in a good range. When prompted the patient voices no other concerns at this time. Review of systems: The rest of the review of systems is negative. Reason For Visit: CHEST PAIN Physical Exam Vital Signs: Temp Pulse Resp BP Pulse Ox 97.5 F 80 20 138/68 H 97 12/25/18 11:19 12/25/18 14:00 12/25/18 11:19 12/25/18 11:19 12/25/18 11:19 Intake & Output 12/23/18 12/24/18 12/25/18 23:59 23:59 23:59 Intake Total 1000 320 Output Total 650 Balance 1000 -330 Weight 86.183 kg On examination the patient is awake, alert, oriented, to person, place, time, and situation. The patient is verbal, conversational, ambulatory. Does not appear to be in any acute distress. Skin is warm and dry, no rash, not diaphoretic. HEENT: no JVD. Pupils are reactive. CVS: Heart is regular, is no murmur or rub. Chest: Is clear to auscultation. Abdomen: Is soft, bowel sounds present. Extremities: There is no edema. Psychiatric: Appropriate affect, pleasant mood. Neurological: Intact. Results Laboratory Results: 12/24/18 16:08 12/24/18 12/24/18 12/24/18 16:08 16:08 16:08 WBC 8.7 RBC 3.85 L Hgb 11.4 L Hct 34.0 L MCV 89 MCH 29.6 MCHC 33.5 RDW 14.1 H Plt Count 180 Seg Neutrophils % 76.9 Lymphocytes % 11.1 L Monocytes % 8.2 Eosinophils % 3.1 Basophils % 0.7 Absolute Neutrophils 6.7 Absolute Lymphocytes 1.0 Absolute Monocytes 0.7 Absolute Eosinophils 0.3 Absolute Basophils 0.1 Sodium 132.9 L Potassium 5.4 H Chloride 97 L Carbon Dioxide 25 Anion Gap 11 BUN 22 H Creatinine 1.42 H Est GFR ( Amer) > 60 Est GFR (Non-Af Amer) 50 L Glucose 336 H Calcium 10.2 Magnesium 1.6 Total Bilirubin 0.2 AST 20 ALT 22 Alkaline Phosphatase 63 Total Protein 6.1 L Albumin 3.9 12/24/18 12/24/18 12/24/18 16:08 16:08 21:40 Creatine Kinase 53 L CK-MB (CK-2) 1.02 Troponin I < 0.012 < 0.012 Impressions: Chest X-Ray 12/24/18 16:07 IMPRESSION: NO ACUTE RADIOGRAPHIC FINDING IN THE CHEST. Assessment & Plan - Diagnosis (1) Chest pain Qualifiers: Chest pain type: unspecified Qualified Code(s): R07.9 - Chest pain, unspecified Is this a current diagnosis for this admission?: Yes Plan: Continue to observe and continuous telemetry. Cardiac enzymes been unremarkable. Will obtain Cardiolite stress test in a.m. given the patient's risk factors. Continue the patient aspirin statin therapy and follow. Given the patient's intermittent pains will give a GI cocktail as well as muscle relaxer to see if this does improve symptoms. (2) Diabetes mellitus type 2 in nonobese Is this a current diagnosis for this admission?: Yes Plan: Continue home basal insulin and sliding scale coverage (3) YOLIE (acute kidney injury) Is this a current diagnosis for this admission?: Yes Plan: Resolved. Hold nephrotoxic medications . (4) Hyperkalemia Is this a current diagnosis for this admission?: Yes Plan: Gently hydrate the patient and repeat chemistry in the a.m. (5) Benign essential hypertension Is this a current diagnosis for this admission?: Yes Plan: Monitor the patient's blood pressures of course his medication is having to be held. (6) Dyslipidemia Is this a current diagnosis for this admission?: Yes Plan: Continue high intensity statin - Time Time Spent with patient: 25-34 minutes Medications reviewed and adjusted accordingly: Yes Anticipated discharge: Home Within: within 24 hours Disposition: The patient is a full code. Pending patient's symptomatology and diagnostic findings will reevaluate in the a.m.
[2018-12-25 16:19] LABS: TROPONIN I < 0.012 ng/mL
--- NOTE | 2018-12-25 22:14 | EKG REPORT ---
SEVERITY:- ABNORMAL ECG - SINUS RHYTHM FIRST DEGREE AV BLOCK : Confirmed by: Cathi Bauer MD 25-Dec-2018 22:14:25
[2018-12-25] MEDS: ATORVASTATIN CALCIUM 80 MG TABLET PO SCH (22:41)
[2018-12-26] MEDS: HEPARIN SOD (PORCINE) 5,000 UNIT/ML 1 ML SYRINGE SUBCUT SCH ×3 (05:36→21:25)
[2018-12-26] MEDS: LANSOPRAZOLE 30 MG TAB.RAP.DR PO SCH (05:36)
[2018-12-26] MEDS: INSULIN LISPRO 100 UNIT/ML 3 ML VIAL SUBCUT SCH ×4 (08:27→21:25)
[2018-12-26] MEDS: ASPIRIN 81 MG TABLET, CHEWABLE PO SCH (09:46)
[2018-12-26] MEDS: INSULIN GLARGINE,HUM.REC.ANLOG 1,000 UNIT/10 ML UNIT SUBCUT SCH (09:46)
[2018-12-26] MEDS: TRAMADOL HCL 50 MG TABLET PO SCH ×2 (09:46→21:24)
--- NOTE | 2018-12-26 13:24 | PDOC PROGRESS REPORT ---
Subjective Progress Note for:: 12/26/18 Subjective:: The patient was seen earlier today on rounds. The patient stated his pain was relieved entirely with the GI cocktail yesterday. The patient denies any nausea, vomiting, diarrhea, shortness of breath, dizziness, chest pain, heart palpitations, fevers, or chills. Denies known heartburn or reflux. The patient has remained afebrile. Blood pressures have been in a good range. When prompted the patient voices no other concerns at this time. Review of systems: The rest of the review of systems is negative. Brief history: Patient was admitted on Thursday due to exertional chest pain. The patient was scheduled for stress test on Thursday however I was unaware that we were not doing stress test in the hospital on the weekends. The patient's pain actually improved with GI cocktail and in now only daily PPI. The patient did not want to leave the hospital without a stress test since he was agreeable to admission for stress test the next morning. The patient will have a stress test in the morning and possibly can be discharged after that. On presentation the patient was actually found to be dehydrated by labs and did receive fluids overnight. The patient's chemistries have corrected. Reason For Visit: CHEST PAIN Physical Exam Vital Signs: Temp Pulse Resp BP Pulse Ox 98.1 F 78 16 130/71 H 97 12/26/18 08:00 12/26/18 08:00 12/26/18 08:00 12/26/18 08:00 12/26/18 08:00 Intake & Output 12/24/18 12/25/18 12/27/18 23:59 23:59 00:59 Intake Total 1000 902 480 Output Total 650 Balance 1000 252 480 Weight 86.183 kg 86.1 kg On examination the patient is awake, alert, oriented, to person, place, time, and situation. The patient is verbal, conversational, ambulatory. Does not appear to be in any acute distress. Skin is warm and dry, no rash, not diaphoretic. HEENT: no JVD. Pupils are reactive. CVS: Heart is regular, is no murmur or rub. Chest: Is clear to auscultation. Abdomen: Is soft, bowel sounds present. Extremities: There is no edema. Psychiatric: Appropriate affect, pleasant mood. Neurological: Intact. Results Laboratory Results: 12/24/18 16:08 12/25/18 14:58 12/25/18 14:58 Sodium 136.0 L Potassium 4.8 Chloride 97 L Carbon Dioxide 29 Anion Gap 10 BUN 17 Creatinine 1.14 Est GFR ( Amer) > 60 Est GFR (Non-Af Amer) > 60 Glucose 202 H Calcium 11.0 H Magnesium 1.8 12/24/18 12/24/18 12/24/18 16:08 16:08 21:40 Creatine Kinase 53 L CK-MB (CK-2) 1.02 Troponin I < 0.012 < 0.012 NT-Pro-B Natriuret Pep 12/25/18 14:58 Creatine Kinase CK-MB (CK-2) Troponin I < 0.012 NT-Pro-B Natriuret Pep 148 Impressions: Chest X-Ray 12/24/18 16:07 IMPRESSION: NO ACUTE RADIOGRAPHIC FINDING IN THE CHEST. Assessment & Plan - Diagnosis (1) Chest pain Qualifiers: Chest pain type: unspecified Qualified Code(s): R07.9 - Chest pain, unspecified Is this a current diagnosis for this admission?: Yes Plan: Continue to observe and continuous telemetry. Cardiac enzymes been unremarkable. Will obtain Cardiolite stress test in a.m. given the patient's risk factors. Continue the patient aspirin statin therapy and follow. Please note the patient's symptoms completely resolved with GI cocktail. (2) Diabetes mellitus type 2 in nonobese Is this a current diagnosis for this admission?: Yes Plan: Continue home basal insulin and sliding scale coverage (3) YOLIE (acute kidney injury) Is this a current diagnosis for this admission?: Yes Plan: Resolved. Hold nephrotoxic medications . (4) Hyperkalemia Is this a current diagnosis for this admission?: Yes Plan: Gently hydrate the patient and repeat chemistry in the a.m. (5) Benign essential hypertension Is this a current diagnosis for this admission?: Yes Plan: Monitor the patient's blood pressures of course his medication is having to be held. (6) Dyslipidemia Is this a current diagnosis for this admission?: Yes Plan: Continue high intensity statin - Time Time Spent with patient: 25-34 minutes Medications reviewed and adjusted accordingly: Yes Anticipated discharge: Home Within: within 24 hours Disposition: The patient is a full code. Pending patient's symptomatology and diagnostic findings will reevaluate in the a.m.
[2018-12-26] MEDS: MORPHINE SULFATE 10 MG/ML INJ IV PRN (15:03)
[2018-12-26] MEDS: ATORVASTATIN CALCIUM 80 MG TABLET PO SCH (21:24)
[2018-12-27] MEDS: MORPHINE SULFATE 10 MG/ML INJ IV PRN (00:49)
[2018-12-27] MEDS: HEPARIN SOD (PORCINE) 5,000 UNIT/ML 1 ML SYRINGE SUBCUT SCH ×2 (05:12→13:09)
[2018-12-27] MEDS: LANSOPRAZOLE 30 MG TAB.RAP.DR PO SCH (05:12)
[2018-12-27 07:48] LABS: CHOLESTEROL 122.84 mg/dL (0-200); TRIGLYCERIDES 93 mg/dL (<150)
[2018-12-27 07:59] LABS: DIRECT LDL 62 mg/dL (<100)
[2018-12-27] MEDS ORDERED: INSULIN GLARGINE,HUM.REC.ANLOG 1,000 UNIT/10 ML UNIT SUBCUT SCH (08:00)
[2018-12-27] MEDS: INSULIN LISPRO 100 UNIT/ML 3 ML VIAL SUBCUT SCH ×2 (09:04→10:15)
[2018-12-27] MEDS: TRAMADOL HCL 50 MG TABLET PO SCH (10:20)
[2018-12-27] MEDS: ASPIRIN 81 MG TABLET, CHEWABLE PO SCH (10:21)
[2018-12-27] MEDS ORDERED: REGADENOSON INJ 0.4 MG/5 ML DISP.SYRIN IV ONE (12:34)
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
[2018-12-27 13:33] VITALS: BP 142/85
--- NOTE | 2018-12-27 21:05 | DRAGON STRESS TEST REPORT ---
Intravenous Lexiscan Cardiolite stress test using single photon emmision computerized tomography. Date of procedure: 12/27/2018. Ordering Provider: Ms. Roel Lehman NP. Patient's status: Inpatient. Indication: Chest pain. Coronary risk factors: Age, diabetes mellitus, hypertension, dyslipidemia, and tobacco abuse disorder. Resting EKG: Sinus Rhythm. APC present. Nonspecific IVCD. Stress EKG: No changes of ischemia. The patient had no chest pain or discomfort, and there were no arrhythmias seen. Reason for termination: Protocol. Conclusions: Normal EKG and hemodynamic response to IV Lexiscan. Nuclear data: At rest the patient was given 13.44 millicuries of technetium 99m sestamibi injected intravenously. As per protocol rest non gated SPECT images were obtained. Subsequently the patient was given intravenous Lexiscan at a dose of 0.4 mg in 5 mL intravenously, followed by flush with normal saline. Subsequently the stress dose of 40.3 millicuries of technetium 99m sestamibi was injected intravenously. As per protocol stress gated images were obtained. Nuclear interpretation: Review of images showed that all segments of the myocardium had normal perfusion at rest, and normal perfusion post stress with IV Lexiscan. All segments of the myocardium had normal motion, contraction, and thickening by gated study. There was no transient ischemic dilatation of the left ventricle. T. I D. ratio was normal at 1.13. Computer read rest, and stress left ventricular ejection fraction were 47 %, and 50 %, respectively. Visually both the stress and rest ejection fractions were normal, and greater than 55%. Conclusion: 1. There is no scintigraphic evidence of Lexiscan induced myocardial ischemia. 2. There is no scintigraphic evidence of myocardial infarction/scar. Recommendations: Aggressive risk factor modification, and treating the underlying co- morbidities . MTDD
== END 2018-12-27 14:00 | disposition home or self-care (01) ==
LOC: ER 15:52 → EH 17:42 → 4N 20:55
PROVIDERS: ADMIT Internal Medicine; ATTEND Internal Medicine
DX: R07.89 Other chest pain (principal); E11.9 Type 2 diabetes mellitus without complications; N17.9 Acute kidney failure, unspecified; I10 Essential (primary) hypertension; R06.02 Shortness of breath; E78.5 Hyperlipidemia, unspecified; K21.9 Gastro-esophageal reflux disease without esophagitis; R19.7 Diarrhea, unspecified; E86.0 Dehydration; E87.5 Hyperkalemia; R06.2 Wheezing; Z79.4 Long term (current) use of insulin; Z79.899 Other long term (current) drug therapy; Z79.82 Long term (current) use of aspirin; Z90.49 Acquired absence of other specified parts of digestive tract; F17.210 Nicotine dependence, cigarettes, uncomplicated; Z82.49 Family history of ischemic heart disease and other diseases of the circulatory system
CPT/HCPCS: 36415; 71046; 78452; 80048; 80053; 80061; 82550; 82553; 82962; 83735; 83880; 84484; 85025; 93005; 93010; 93017; 94640; 96360; 96361; 99285; A9500; G0378; J1644; J1815; J2270; J2785; J3490; J7030